=== PATIENT | male | born 1975 | race Caucasian/White ===

== ENCOUNTER 2024-10-10 18:39 | Observation (INO) | payer OTHER, SELFPAY ==
--- OUTSIDE RECORDS SUMMARY | 2024-03-26 10:00 | XMS_ITS ---
Author Organization [facility] Address [address] [facility] [address] [place] [address] Care Team Providers Care Decorating Equipment Setter Name Role Phone Kandis Hinton Jimmy [phone] REASON FOR VISIT WALK-OFF Social History Sex Assigned At : Social History Observation Description Sex Assigned At Male Encounters Encounter Location Date Provider Diagnosis [facility] [address] [facility] [address] [place] [address] 03/26/2024 Kandis Hinton Plan Of Treatment No Information Progress Notes * Larry PHAM JR CDOB:[birth year] (48 yo M)Acc No.[id number]:03/26/2024 Patient: Domonique Larry HARRIS JR Provider: Jovita Hinton NP :1975 A ge:48 Y S ex:Male Date:03/26/2024 Address:[address] [id number] Subjective: * Chief Complaints: * 1 . WALK-OFF. * Medical History: Objective: * Vitals: Assessment: Plan: * Treatment: * Billing Information: * Visit Code: * Procedure Codes: * Electronic signature of Sofia Hinton APRN on 10/10/2024 at 06:50 PM EDT Sign off status: Pending * Provider: Jovita Hinton NP Date: 05/27/2023 Generated for Printi ng/Faxing/eTransmitting on: 0 10/10/2024 06:50 PM EDT
[2024-10-10] VITALS (11 sets, daily range): BP systolic 109–162; BP diastolic 62–103; PULSE 65–101; RESP 16–30; TEMP 36.9; O2SAT 94–100; BMI 34.2; BMI 41.8
--- NOTE | 2024-10-10 18:40 | XR_ITS ---
PROCEDURE INFORMATION: Exam: XR Chest Exam date and time: 10/10/2024 6:58 PM Age: 48 years old Clinical indication: Other: AMS TECHNIQUE: Imaging protocol: Radiologic exam of the chest. Views: 1 view. COMPARISON: No relevant prior studies available. FINDINGS: Lungs: Unremarkable. No consolidation. Pleural spaces: Unremarkable. No pleural effusion. No pneumothorax. Heart/Mediastinum: Unremarkable. No cardiomegaly. Bones/joints: Unremarkable. IMPRESSION: No acute findings.
--- NOTE | 2024-10-10 18:44 | ED_ITS ---
Discharge Plan Disposition Patient Disposition: Admitted Clinical Impressions Clinical Impression: JHONNY (acute kidney injury) Rhabdomyolysis Qualifiers: Rhabdomyolysis type: non-traumatic Qualified Code(s): M62.82 - Rhabdomyolysis Discharge ED Provider: Rosana Anthony General Adult HPI <Jade Chapman APRN - Last Filed: 10/10/24 20:21> General Chief complaint: Altered Mental Status Stated complaint: Heat Stroke Time Seen by Provider: 10/10/24 18:40 History of Present Illness HPI narrative: patient is a 48-year-old male PMHx who presents to the ED via EMS for possible heatstroke. EMS reports that they were [place] after patient had been hunting and fishing with his friend for hours, he had multiple syncopal episodes reportedly before EMS arrived. When EMS arrived on scene, patient continued to have syncopal episodes and was altered. They state it took them approximately 1 hour to extract [place] from the [place] and bring him to the ED. Related Data Allergies Allergy/AdvReac Type Severity Reaction Status Date / Time No Known Allergies Allergy Verified 10/10/24 19:01 [facility] <Jade Chapman APRN - Last Filed: 10/10/24 20:21> [facility] Disclaimer: The information contained in this section may have been updated after the patient was seen, as this information can be updated by other users. Social History (Updated 10/10/24 @ 20:21 by Jade Chapman APRN) Smoking Status: Current every day smoker alcohol intake: current current occupational status: unemployed Travel in the last 8 weeks?: None Have you lived/traveled outside US in past 30 days?: No Contact w/someone who lives/traveled outside US past 30 days?: No Exposure to someone with infectious disease in past 14 days?: No Do you have a fever (greater than 100.4 F or 38 C)?: No Have you tested positive for COVID-19?: No Exposed to someone with COVID-19 in past 14 days?: No Do you have a sore throat?: No Do you have a cough?: No Do you have any weakness?: No Do you have any diarrhea?: No Are you experiencing any unusual bleeding?: No Do you have any muscle aches/pain?: No Do you have any abdominal pain?: No Are you experiencing loss of taste or smell?: No <Jade Chapman APRN - Last Filed: 10/10/24 20:21> ROS Obtained: Yes Systems reviewed as appropriate & no additional complaints except as documented Physical Exam <Jade Chapman APRN - Last Filed: 10/10/24 20:21> General General appearance: alert and in no apparent distress Head Head exam: atraumatic Eye Eye exam: Present PERRL and EOMI ENT ENT exam: Present normal exam Neck Neck exam: Present full ROM Chest Chest inspection: Present normal inspection Respiratory Respiratory exam: Present normal lung sounds bilaterally and respiratory distress Cardiovascular Cardiovascular exam: Present regular rate Abdominal Exam Abdominal exam: Present soft; Absent tenderness Extremities Exam Extremities exam: Present other (feet are dirty / covered in mud and wheat grass ) Back Exam Back exam: Present normal inspection and full ROM; Absent tenderness Neurological Exam Neurological exam: Present alert and oriented X3 Skin Skin exam: Present warm and dry Medical Decision Making <Jade Chapman APRN - Last Filed: 10/10/24 20:21> Medical Records Screening: Per USPSTF and CDC recommendations, given the prevalence of disease in our region, it is our hospital?s policy to screen for HIV and viral Hepatitis for all patients aged 18 and over and those with ongoing risk factors. Foreign Inquiry Pt receiving controlled substance: No Vital Signs: 10/10/24 18:47 10/10/24 18:57 10/10/24 19:29 Temperature 98.5 F 98.5 F Temperature Source Oral Oral Pulse Rate 101 H 97 H Pulse Rate [Right] 101 H Respiratory Rate 30 H 30 H 18 Blood Pressure 162/102 H 143/103 H Blood Pressure [Right Arm] 162/102 H Blood Pressure Mean [Right Arm] 122 Blood Pressure Source Automatic Cuff Blood Pressure Source [Right Arm] Automatic Cuff Blood Pressure Position Supine Blood Pressure Position [Right Arm] Supine 02 Sat by Pulse Oximetry 98 98 97 Oxygen Delivery Method Room Air Room Air Room Air Lab Data Lab Results 10/10/24 18:44: WBC 15.0 H, RBC 4.91, Hgb 14.4, Hct 41.2 L, MCV 83.9, MCH 29.3, MCHC 35.0, RDW 11.9, Plt Count 214, MPV 11.7 H, Neut % (Auto) 67.3, Lymph % (Auto) 21.6, [place] % (Auto) 9.6 H, Eos % (Auto) 0.4, Baso % (Auto) 0.6, Neut # (Auto) 10.1 H, Lymph # (Auto) 3.2, [place] # (Auto) 1.4 H, Eos # (Auto) 0.1, Baso # (Auto) 0.1, PT 12.2, INR 1.11 H, Sodium 130 L, Potassium 3.5, Chloride 91 L, Carbon Dioxide 27, Anion Gap 15.5 H, BUN 47 H, Creatinine 4.10 H, Estimated Creat Clear 31, Estimated GFR 16 L*, Est GFR ( Amer) 19 L*, Glucose 451 H*, Calcium 10.9 H, Total Bilirubin 1.3, AST 59, ALT 41, Alkaline Phosphatase 80, Total Creatine Kinase 1183 H*, Troponin I 0.04 H, Total Protein 7.8, Albumin 4.5, Globulin 3.3 H, Albumin/Globulin Ratio 1.4, Salicylates < 1.0 L, A cetaminophen < 10 L, Plasma/Serum Alcohol < 10 10/10/24 18:46: VBG pH 7.38, VBG pCO2 37.3, VBG pO2 57.3 H, VBG HCO3 21.7 L, VBG Total CO2 22.9 L, VBG O2 Saturation 90.5 H, VBG Base Excess -3.4 L, VBG Lactic Acid 2.1 H 10/10/24 18:44 10/10/24 18:44 Orders (Tests/Meds): ED MEDICATIONS Generic Name Dose Route Start Last Admin Trade Name Freq PRN Reason Stop Dose Admin Acetaminophen 650 mg 10/10/24 20:22 Acetaminophen 325mg Tab PO 11/09/24 20:21 Q4HP PRN Fever or Mild Pain (1-3) Sodium Chloride 1,000 mls @ 250 mls/hr 10/10/24 20:15 Sod Chlor 0.9% 1000ml Bag IV 11/09/24 20:14 .Q4H JENY Insulin Human Lispro 0 unit 10/10/24 21:00 Humalog 100 Units/Ml 10ml Vial (Ssi) SUBCUT 11/09/24 20:59 ACHS JENY Protocol Discontinued Medications Generic Name Dose Route Start Last Admin Trade Name Freq PRN Reason Stop Dose Admin Sodium Chloride 1,000 mls @ 999 mls/hr 10/10/24 18:40 10/10/24 19:20 Sod Chlor 0.9% 1000ml Bag IV 10/10/24 19:40 999 mls/hr .Q1H1M ONE Administration Insulin Human Lispro 10 unit 10/10/24 19:14 10/10/24 19:20 Humalog 100 Units/Ml 10ml Vial (Ssi) SUBCUT 10/10/24 19:15 10 unit ONCE ONE Administration ORDERS Category Date Time Status CXR --portable [XR chest portable] Stat Exams 10/10/24 18:40 Completed Acetaminophen Stat Lab 10/10/24 18:44 Completed Blood alcohol [Ethyl Alcohol] Stat Lab 10/10/24 18:44 Completed CBC w/Auto Diff [Complete Blood Count Auto Diff] Stat Lab 10/10/24 18:44 Completed CK [Creatine Kinase] Stat Lab 10/10/24 18:44 Completed CMP [Comprehensive Metabolic Panel] Stat Lab 10/10/24 18:44 Completed PT/INR [Prothrombin Time INR] Stat Lab 10/10/24 18:44 Completed Salicylate Stat Lab 10/10/24 18:44 Completed Trop I [Troponin I] Stat Lab 10/10/24 18:44 Completed Troponin I Q3H Lab 10/10/24 21:45 Ordered Troponin I Q3H Lab 10/11/24 00:45 Ordered UDS [Drug Screen,Urine] Stat Lab 10/10/24 18:40 Ordered VBG [Venous Blood Gas] Stat RT 10/10/24 18:46 Completed Medical Decision Narrative: In summary, patient is a 48-year-old male PMHx who presents to the ED via EMS for possible heatstroke. EMS reports that [place] were [place] patient had been hunting and fishing with his friend for hours, he had multiple syncopal episodes reportedly before EMS arrived. When EMS arrived on scene, patient continued to have syncopal episodes and was altered. They state it took them approximately 1 hour to extract [place] from the [place] and bring him to the ED. Unsure if patient fell during his syncopal episodes. They were originally going to fly the patient however patient refused flight. Upon arrival to the ED, patient is alert and oriented. He is hemodynamically stable. He states that he has diabetes, uses insulin. He states that he does use alcohol and drugs. He states that he does remember being out in [place] friends and passing out multiple times. He states he does remember being extracted from the [place]. Pt refusing to get off his cell phone during exam, refusing c-collar. Differential diagnosis include ICH, mass, intoxication, electrolyte abnormality, heatstroke, heat exhaustion, among others. Discussed with patient that we will proceed with labs, CT scans and IV fluids. Patient is agreeable to plan of care at this time. Once patient was in CT room, attending called to CT room, pt refused CT scans. Attending spoke to patient and advised him of concern of bleed, pt is A&Ox4, refuses CT scans. Verbalized understanding to attending of risk CBC remarkable for mild leukocytosis, WBC 15, stable H&H. Lactic acid 2.1. Sodium 130, anion gap 15.5, BUN 47, creatinine 4.10, GFR 16. Glucose 451. CK 1,183. Troponin < 0.04. Alcohol < 10. Acetaminophen < 10. Salicylate < 1.0. Patient is receiving his second liter of IV fluids in the ED. Patient given 10 units of subcutaneous insulin. I discussed with patient his kidney function and CK result, discussed with him that he will need to be admitted to the hospital. Initially, patient wanted to refuse admission. His brother is at bedside and convinced him to stay for admission. I contacted hospital medicine who admitted patient to their services. <Rosana Anthony, DO - Last Filed: 10/10/24 20:36> Vital Signs: 10/10/24 18:47 10/10/24 18:57 10/10/24 19:29 Temperature 98.5 F 98.5 F Temperature Source Oral Oral Pulse Rate 101 H 97 H Pulse Rate [Right] 101 H Respiratory Rate 30 H 30 H 18 Blood Pressure 162/102 H 143/103 H Blood Pressure [Right Arm] 162/102 H Blood Pressure Mean [Right Arm] 122 Blood Pressure Source Automatic Cuff Blood Pressure Source [Right Arm] Automatic Cuff Blood Pressure Position Supine Blood Pressure Position [Right Arm] Supine 02 Sat by Pulse Oximetry 98 98 97 Oxygen Delivery Method Room Air Room Air Room Air Lab Data Lab Results 10/10/24 18:44: WBC 15.0 H, RBC 4.91, Hgb 14.4, Hct 41.2 L, MCV 83.9, MCH 29.3, MCHC 35.0, RDW 11.9, Plt Count 214, MPV 11.7 H, Neut % (Auto) 67.3, Lymph % (Auto) 21.6, [place] % (Auto) 9.6 H, Eos % (Auto) 0.4, Baso % (Auto) 0.6, Neut # (Auto) 10.1 H, Lymph # (Auto) 3.2, [place] # (Auto) 1.4 H, Eos # (Auto) 0.1, Baso # (Auto) 0.1, PT 12.2, INR 1.11 H, Sodium 130 L, Potassium 3.5, Chloride 91 L, Carbon Dioxide 27, Anion Gap 15.5 H, BUN 47 H, Creatinine 4.10 H, Estimated Creat Clear 31, Estimated GFR 16 L*, Est GFR ( Amer) 19 L*, Glucose 451 H*, Calcium 10.9 H, Total Bilirubin 1.3, AST 59, ALT 41, Alkaline Phosphatase 80, Total Creatine Kinase 1183 H*, Troponin I 0.04 H, Total Protein 7.8, Albumin 4.5, Globulin 3.3 H, Albumin/Globulin Ratio 1.4, Salicylates < 1.0 L, A cetaminophen < 10 L, Plasma/Serum Alcohol < 10 10/10/24 18:46: VBG pH 7.38, VBG pCO2 37.3, VBG pO2 57.3 H, VBG HCO3 21.7 L, VBG Total CO2 22.9 L, VBG O2 Saturation 90.5 H, VBG Base Excess -3.4 L, VBG Lactic Acid 2.1 H Orders (Tests/Meds): ED MEDICATIONS Generic Name Dose Route Start Last Admin Trade Name Freq PRN Reason Stop Dose Admin Acetaminophen 650 mg 10/10/24 20:22 Acetaminophen 325mg Tab PO 11/09/24 20:21 Q4HP PRN Fever or Mild Pain (1-3) Sodium Chloride 1,000 mls @ 250 mls/hr 10/10/24 20:15 Sod Chlor 0.9% 1000ml Bag IV 11/09/24 20:14 .Q4H JENY Insulin Human Lispro 0 unit 10/10/24 21:00 Humalog 100 Units/Ml 10ml Vial (Ssi) SUBCUT 11/09/24 20:59 ACHS JENY Protocol Discontinued Medications Generic Name Dose Route Start Last Admin Trade Name Freq PRN Reason Stop Dose Admin Sodium Chloride 1,000 mls @ 999 mls/hr 10/10/24 18:40 10/10/24 19:20 Sod Chlor 0.9% 1000ml Bag IV 10/10/24 19:40 999 mls/hr .Q1H1M ONE Administration Insulin Human Lispro 10 unit 10/10/24 19:14 10/10/24 19:20 Humalog 100 Units/Ml 10ml Vial (Ssi) SUBCUT 10/10/24 19:15 10 unit ONCE ONE Administration ORDERS Category Date Time Status CXR --portable [XR chest portable] Stat Exams 10/10/24 18:40 Completed Acetaminophen Stat Lab 10/10/24 18:44 Completed Blood alcohol [Ethyl Alcohol] Stat Lab 10/10/24 18:44 Completed CBC w/Auto Diff [Complete Blood Count Auto Diff] Stat Lab 10/10/24 18:44 Completed CK [Creatine Kinase] Stat Lab 10/10/24 18:44 Completed CMP [Comprehensive Metabolic Panel] Stat Lab 10/10/24 18:44 Completed PT/INR [Prothrombin Time INR] Stat Lab 10/10/24 18:44 Completed Salicylate Stat Lab 10/10/24 18:44 Completed Trop I [Troponin I] Stat Lab 10/10/24 18:44 Completed Troponin I Q3H Lab 10/10/24 21:45 Ordered Troponin I Q3H Lab 10/11/24 00:45 Ordered UDS [Drug Screen,Urine] Stat Lab 10/10/24 18:40 Ordered VBG [Venous Blood Gas] Stat RT 10/10/24 18:46 Completed ECG Data Tracing #1: I reviewed this ECG and interpreted as documented below: Normal sinus rhythm with ventricular rate of [address] changes concerning for ischemia. Normal intervals ECG initial impression date: 10/10/24 ECG initial impression time: 18:45 Medical Decision Narrative: In summary, patient is a 48-year-old male PMHx who presents to the ED via EMS for possible heatstroke. EMS reports that they were [place] after patient had been hunting and fishing with his friend for hours, he had multiple syncopal episodes reportedly before EMS arrived. When EMS arrived on scene, patient continued to have syncopal episodes and was altered. They state it took them approximately 1 hour to extract [place] the [place] and bring him to the ED. Unsure if patient fell during his syncopal episodes. They were originally going to fly the patient however patient refused flight. Upon arrival to the ED, patient is alert and oriented. He is hemodynamically stable. He states that he has diabetes, uses insulin. He states that he does use alcohol and drugs. He states that he does remember [place] out [place] and passing out multiple times. He states he does remember being [place] from the [place]. Pt refusing to get off his cell phone during exam, refusing c-collar. Differential diagnosis include ICH, mass, intoxication, electrolyte abnormality, heatstroke, heat exhaustion, among others. Discussed with patient that we will proceed with labs, CT scans and IV fluids. Patient is agreeable to plan of care at this time. Once patient was in CT room, attending called to CT room, pt refused CT scans. Attending spoke to patient and advised him of concern of bleed, pt is A&Ox4, refuses CT scans. Verbalized understanding to attending of risk CBC remarkable for mild leukocytosis, WBC 15, stable H&H. Lactic acid 2.1. Sodium 130, anion gap 15.5, BUN 47, creatinine 4.10, GFR 16. Glucose 451. CK 1,183. Troponin < 0.04. Alcohol < 10. Acetaminophen < 10. Salicylate < 1.0. Patient is receiving his second liter of IV fluids in the ED. Patient given 10 units of subcutaneous insulin. I discussed with patient his kidney function and CK result, discussed with him that he will need to be admitted to the hospital. Initially, patient wanted to refuse admission. His brother is at bedside and convinced him to stay for admission. I contacted hospital medicine who admitted patient to their services. DO Raj: I was consulted by the ROBBY, and we discussed the complexity of the problems being addressed. I approved the treatment and management plan for this patient's care in the emergency department, thus performing a substantive portion of the medical decision making. Patient arrives critically ill with altered mental status, heat exposure. Broad workup was obtained to evaluate for heatstroke and other causes of altered mental status. Labs are concerning for acute rhabdomyolysis and JHONNY. Patient was treated with IV fluid resuscitation here. He also has hyperglycemia, for which insulin was ordered. Patient was taken to CT scan for CT scan of the head. I presented to CT, as the patient was refusing. We had a very long discussion about why we wanted to obtain CT given his multiple syncopal episodes and altered mental status upon arrival. Advised that I wanted to rule out stroke or head bleed. Patient was alert and oriented x 4 and was able to repeat back to me why I wanted to obtain a CT scan, but he states that he is not interested and feels fine now. He states that he has not had a stroke, he just got too hot. He notes that he is afraid of CT scanners and does not consent to CT. We had a long question about this, and patient still adamantly refused. Given that he is alert and oriented and demonstrates decision-making capacity, I cannot force him to obtain CT scan against his will. For heat exposure, rhabdomyolysis, and multiple syncopal episodes as well as JHONNY, it is felt he would benefit from admission. He was admitted after interactive discussion with the hospitalist. Rosana Anthony DO Critical Care <Jade Chapman APRN - Last Filed: 10/10/24 20:21> Critical Care Time Critical Care Time: No <Rosana Anthony DO - Last Filed: 10/10/24 20:36> Critical Care Time Critical Care Time: Yes Attestation: On 10/10/24, the high probability of a clinically significant, sudden or life threatening deterioration of the following system(s) required my full and direct attention, intervention and personal management. The time I documented below is in addition to time spent performing reported procedures but includes the following listed in this critical care notation. Total Time Total Critical Care Time: 35
--- NOTE | 2024-10-10 18:45 | ECG_ITS ---
APPROVED REPORT Exam: Resting ECG HR:98 bpm ECG Measurements Heart Rate 98 AXES OK 147 P 49 QRSd 128 QRS 25 QT 363 T 5 QTc 418 Conclusion SINUS RHYTHM ABNORMAL ECG No STEMI Electronically signed by : COLIN WISEMAN, 10/11/2024 21:19:12
--- NOTE | 2024-10-10 18:45 | PC.NURSE ---
Patients FSBS is 402.
--- NOTE | 2024-10-10 18:47 | PC.NURSE ---
2 ticks from patient (right neck at valero line, and center chest). Placed into specimen cup.
--- OUTSIDE RECORDS SUMMARY | 2024-10-10 18:50 | XMS_ITS | Encounter Summary ---
Author Organization [place] [address] Care Team Providers Care Performance Test Engineer Name Role Phone Alessio Gillis DO Primary Care Provider [phone] Encounter Details Date Type Department Care Team (Late st Contact Info) Description 10/09/2024 Orders Only [facility] [address] [place] [id number] Johnny Guerin MD [address] [place] [address] Chronic midline low back pain without sciatica; Chronic pain of right lower extremity Social History Tobacco Use Types Packs/Day Years Used Date Smoking Tobacco: Every Day Cigarettes 2 38.5 Started: 04/21/1986 Smokeless Tobacco: Never Comments:Pt reports he has b een vaping & has had 1 cigarette this week so far-05/03/19-KR Alcohol Use Standard Drinks/Week Comments Not Currently 0 (1 standard drink = 0.6 oz pure alcohol) few days ago, a can of 211 beer Overall Financial Resource Strain (CARDIA) [place] r Date Recorded Difficulty of Paying Living Expenses Not very [address] 03/25/2019 PHQ-2 Answer Date Recorded PHQ-2 Total Score 0 05/17/2024 Hunger Vital Sign Answer Date Recorded Worried About Running Out of Food in the Last Ye ar Never true 03/25/2019 Ran Out of Food in the Last Year Never true 03/25/2019 PRAPARE - Transportation Answer Date Re corded Lack of Transportation (Medical) Yes 03/25/2019 Lack of Transportation (Non-Medical) Yes 03/25/2019 Sex and Gender Information Value Date Recorded Sex Assigned at Not on file Legal Sex Male 7:56 PM EDT Gender Identity Not on file Sexual Orientation Not on file documented as of this encounter Functional Status * Is the person deaf or does he/she have serious difficulty hearing? Answer Date of Assessment Author No 05/17/2024 11:20 AM Cornelia Pandya MA * Is the person blind or does he/she have serious difficulty seeing even when wearing glasses? Answer Date of Assessment Author No 05/17/2024 11:20 AM Cornelia Pandya MA * Does this person have serious difficulty walking or climbing stairs? Answer Date of Assessment Author No 05/17/2024 11:20 AM Cornelia Pandya MA * Does this person have difficulty dressing or bathing? Answer Date of Assessment Author No 05/17/2024 11:20 AM Cornelia Pandya MA * Because of a physical, mental or emotional condition, does this person have difficulty doing errands alone such as visiting a doctor's office or shopping? Answer Date of Assessment Author No 05/17/2024 11:20 AM Cornelia Pandya MA documented as of this encounter Mental Status * Because of a physical, mental or emotional condition, does this person have serious difficulty concentrating, remembering or making decisions? Answer Entry Date Author No 05/17/2024 11:20 AM Cornelia Pandya MA documented in this encounter Ordered Prescriptions Prescription Sig Dispense Quantity Refills Last Filled Start Date End Date gabapentin (NEURONTIN) 600 mg Oral TabletIndications:C hronic midline low back pain without sciatica,Chronic pain of right lower extremity Take 1 Tablet by mouth 3 times daily. 90 Tablet 1 10/09/2024 documented in this encounter Plan of Treatment Not on file documented as of this encounter Goals Goal Patient Goal Type Associated Problems Recent Progress Patient-Stated? Author Blood Pressure < 140/90 Blood Pressure 120/76(2024 10:07 AM EDT) Gladys Barnes CCMA BMI (Calculated) < 30 General 47.2(07/21/19 25 10:07 AM EDT) Gladys Barnes CCMA Maintain a healthy diet, exercise regularly and maintain an ideal body weight General Gladys Barnes CCMA Stay Tobacco Free Lifestyle Gladys Barnes CCMA HEMOGLOBIN A1C < 7.0 Result Component 8.4( 5 12:41 PM EST) Gladys Barnes CCMA documented as of this encounter Visit Diagnoses Diagnosis Chronic midline low back pain without sciatica Chronic pain of right lower extremity documented in this encounter Care Teams Performance Test Engineer Relationship Specialty Start Date End Date Alessio Gillis DO [address] [place] [address] PCP - General Family Medicine 07/14/23 documented as of this encounter
--- OUTSIDE RECORDS SUMMARY | 2024-10-10 18:50 | XMS_ITS ---
Author Organization [facility] are Address [address] [place] [phone] Phone Care Team Providers Care Product Marketing Intern Name Role Phone Nelarodrigo MICHELLEN Felecia Primary Care Physician [phone] [ ] Conditions or Problems No information available. Medications No information available. Medications Administered No information available. Allergies, Adverse Reactions, Alerts No information available. Results No information available. Plan of Care No information available. Procedures No information available. Vital Signs No information available. Immunizations No information available. Advance Directives No information available.
--- OUTSIDE RECORDS SUMMARY | 2024-10-10 18:51 | XMS_ITS | Encounter Summary ---
Author Organization [facility] [place] [address] Care Team Providers Care Mechanical Engineering Teacher Name Role Phone Alessio Gillis DO Primary Care Provider [phone] Reason for Visit * Reason Onset Date Comments Medication Refill 09/09/2024 Encounter Details Date Type Department Care Team (Late st Contact Info) Description 09/09/2024 Refill [facility] [address] [place] [phone] Alessio Gillis DO [address] [place] [address] Medication Refill Social History Tobacco Use Types Packs/Day Years [...] End Date gabapentin (NEURONTIN) 600 mg Oral TabletIndications: Chronic midline low back pain without sciatica,Chronic pain of right lower extremity Take 1 Tablet by mouth 3 times daily. 90 Tablet 1 09/09/2024 10/07/2024 documented in this encounter Miscellaneous Notes * Telephone Encounter - Alessio Gillis DO - 09/09/2024 3:15 PM EDT Med refilled * Telephone Encounter - Gisell Henry MA - 09/09/2024 1:26 PM EDT [facility] 06/16/24 Last Refill 08/12/24 documented in this encounter Plan of Treatment Not on file documented as of this encounter Goals Goal Patient Goal Type Associated Problems Recent Progress Patient-Stated? Author Blood Pressure < 140/90 Blood Pressure 120/76(2024 10:07 AM EDT) Gladys Barnes CCMA BMI (Calculated) < 30 General 47.2(07/21/19 10:07 AM EDT) Gladys Barnes CCMA Maintain a healthy diet, exercise regularly and maintain an ideal body weight General Gladys Barnes CCMA Stay Tobacco Free Lifestyle Gladys Barnes CCMA HEMOGLOBIN A1C < 7.0 Result Component 8.4( 12:41 PM EST) Gladys Barnes CCMA documented as of this encounter Visit Diagnoses Diagnosis Chronic midline low back pain without sciatica Chronic pain of right lower extremity documented in this encounter Discontinued Medications Medication Sig Discontinue Reason Start Date End Da te gabapentin (NEURONTIN) 600 mg Oral TabletIndications:Chroni c midline low back pain without sciatica,Chronic pain of right lower extremity Take 1 Tablet by mouth 3 times daily. Reorder 08/12/2024 09/09/2024 documented as of this encounter Care Teams Mechanical Engineering Teacher Relationship Specialty Start Date End Date Alessio Gillis DO [address] [place] [address] PCP - General Family Medicine 07/14/23 documented as of this encounter
--- OUTSIDE RECORDS SUMMARY | 2024-10-10 18:51 | XMS_ITS | Encounter Summary ---
Author Organization [facility] [place] [address] Care Team Providers Care Residence Life Coordinator Name Role Phone Alessio Gillis DO Primary Care Provider [phone] Reason for Visit * Reason Onset Date Comments Medication Management 10/08/2024 gabapentin (NEURONTIN) Encounter Details Date Type Department Care Team (Late st Contact Info) Description 10/08/2024 Telephone [facility] [address] [place] [address] Alessio Gillis DO [address] [place] [address] Medication Management (gabapentin (NEURONTIN)) Social History Tobacco Use Types Packs/Day Years [...] Cornelia Pandya MA documented in this encounter Miscellaneous Notes * Telephone Encounter - Luh Traylor MA - 10/08/2024 1:35 PM EDT Rx refill was denied. Melissa spoke to [facility] and the pt. * Telephone Encounter - Ayesha Guevara 10/08/2024 1:07 PM EDT Select the most appropriate reason for this telephone message: Medication Management/Problem Who is calling? [facility] What medication(s) do you have concerns about: Disp Refills Start End gabapentin (NEURONTIN) 600 mg Oral Tablet 90 Tablet 1 10/07/2024 -- Sig - Route: Take 1 Tablet by mouth 3 times daily. - Oral Sent to pharmacy as: gabapentin 600 mg tablet (NEURONTIN) E-Prescribing Status: Receipt confirmed by pharmacy (10/07/2024 8:59 AM EDT) Prescribing provider: Elis What are your concerns/request: pt is wanting this med early pharmacy is needing an ok pt stating he is leaving town but he has been requesting it early frequently , July he got it on the got it 4 days early should have been the , August 2 days early and September 1 day early ,he should get it this month on the and is requesting it for today Desired outcome: Clarification of prescription Pharmacy: [facility] Return Method of Communication: Phone Call Additional Information: pt is waiting at the pharmacy documented in this encounter Plan of Treatment [...] and maintain an ideal body weight General lGadys Barnes CCMA Stay Tobacco Free Lifestyle Gladys Barnes CCMA HEMOGLOBIN A1C < 7.0 Result Component 8.4( 12:41 PM EST) Gladys Barnes CCMA documented as of this encounter Visit Diagnoses Not on filedocumented in this encounter Care Teams Residence Life Coordinator Relationship Specialty Start Date End Date Alessio Gillis DO [address] [place] [address] PCP - General Family Medicine 07/14/23 documented as of this encounter
--- OUTSIDE RECORDS SUMMARY | 2024-10-10 18:51 | XMS_ITS | Encounter Summary ---
Author Organization [facility] [place] [address] Care Team Providers Care Clerical Investigator Name Role Phone Alessio Gillis DO Primary Care Provider [phone] Encounter Details Date Type Department Care Team (Late st Contact Info) Description 10/09/2024 Refill [facility] [address] [place] [phone] Gladys Cox CCMA Social History Tobacco Use Types Packs/Day Years [...] encounter Miscellaneous Notes * Telephone Encounter - Gladys Cox CCMA - 10/09/2024 10:55 AM EDT Gabapentin refill went to the wrong [facility]. Dc'd med at [facility], pls resend to [facility]. documented in this encounter Plan of Treatment Not on file documented as of this encounter Goals Goal Patient Goal Type Associated Problems Recent Progress Patient-Stated? Author Blood Pressure < 140/90 Blood Pressure 120/76(2024 10:07 AM EDT) No Gladys Cox CCMA BMI (Calculated) < 30 General 47.2(07/21/19 [...] 1 Tablet by mouth 3 times daily. Availability 10/07/2024 10/09/2024 documented as of this encounter Care Teams Clerical Investigator Relationship Specialty Start Date End Date Alessio Gillis DO [address] [place] [address] PCP - General Family Medicine 07/14/23 documented as of this encounter
--- OUTSIDE RECORDS SUMMARY | 2024-10-10 18:51 | XMS_ITS | Patient Health Record ---
Author Organization [facility] Address [address] [facility] [address] [place] [address] Care Team Providers Care Razor Grinder Name Role Phone Felecia Smith Unavailable [phone] Kandis Hinton Unavailable [phone] Allergies No Known Allergies Reason For Referral No Information Medications Medication SIG (Take, Route, Frequency, Duration) Notes Start Date End Date Status Levemir 100 UNIT/ML 38 units Subcutaneou s in the morning for 30 days take 38 units in the am 03/20/2024 Active NovoLOG FlexPen 100 UNIT/ML as directed Subcutaneous per sliding scale for 28 days sliding scale Active Atenolol 25 MG 1 tablet Orally Once a day for 30 days Pt is at [facility] 03/24/2024 Active Meloxicam 15 MG 1 tablet Orally Once a day for 30 days Active amLODIPine Besylate 10 MG 1 tablet Orally Once a day for 30 days Active rOPINIRole HCl 0.5 MG 1 tablet 1 to 3 hours before bedtime Orally Once a day for 30 days 03/22/2024 Active SEROquel 50 MG 1 tablet at bedtime Orally Once a day for 30 days 03/22/2024 Active Cymbalta 60 MG 1 capsule Orally Onc e a day for 30 days 03/22/2024 Active Clindamycin HCl 300 MG 1 capsule Orally three times daily for 7 days 03/20/2024 Active Vraylar 1.5 MG 1 capsule Orally Onc e a day for 30 days 03/22/2024 Active Social History Tobacco Use: Social History Observation Description Date Details (start date - stop date) Current Smoker NA - NA Sex Assigned At : Social History Observation Description Sex Assigned At Male Tobacco Control (Standard) Question Answer Notes Tobacco use: Current smoker How often do you smoke cigarettes? Every day How many cigarettes a day do you smoke? 11-20 How soon after you wake up do you smoke your fir st cigarette? Within 5 minutes Are you interested in quitting? Not ready to trinity t Section Notes: Client states he had one lef tover OXY from surgery and he took it a couple days ago for pain in his leg. Client states he had one lef tover OXY from surgery and he took it a couple days ago for pain in his leg. 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) Active confirmed Problem 4684549 Primary insomnia (F51.01) Active confirmed Problem 871300492 custodial (current) use of insulin (Z79.4) Active confirmed Problem 44263239 Primary hypertension (I10) Active confirmed Problem 449901807 Neuropathy (G62.9) Active confirmed Problem 41286706 Mood disorder (F39) Active confirmed Vital Signs Heart Rate 97 /min 03/24/2024 Temperature 98.0 degrees Fahrenheit 03/24/2024 Respiratory Rate 18 /min 03/24/2024 Blood pressure diastolic 90 mm Hg 03/24/2024 Oximetry 95 % 03/24/2024 Height-cm 172.72 cm 03/24/2024 Weight-kg 126.1 kg 03/24/2024 Height 68 in 03/24/2024 Blood pressure systolic 180 mm Hg 03/24/2024 Weight 278 lbs 03/24/2024 BMI 42.27 kg/m2 03/24/2024 Encounters Encounter Location Date Provider Diagnosis [facility] [address] [address] 03/22/2024 Kandis Hinton Other stimulant dependence, uncomplicated F15.20 ; Marijuana use F12.90 ; High risk heterosexual behavior Z72.51 ; Mood disorder F39 ; Primary insomnia F51.01 ; 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 ; Primary hypertension I10 ; Type 2 diabetes mellitus without complications E11.9 ; custodial (current) use of insulin Z79.4 and Neuropathy G62.9 [facility] [address] [address] 03/24/2024 Felecia Smith Primary hypertension I10 Assessments Encounter Date Diagnosis (ICD Code) Assessment Notes Treatment Notes Treatment Clinical Notes Section Notes 03/22/2024 Other stimulant dependence, uncomplicated (ICD-10 - F15.20) 03/22/2024 Marijuana use (ICD-10 - F12.90) 03/24/2024 Primary hypertension (ICD-10 - I10) Pt given one time dose of Clonidine 0.1 mg while at [facility] to help lower bp today 03/22/2024 High risk heterosexual behavior (ICD-10 - Z72.51) 03/22/2024 Mood disorder (ICD-10 - F39) 03/22/2024 Primary insomnia (ICD-10 - F51.01) 03/22/2024 Night terrors (ICD-10 - F51.4) 03/22/2024 Primary hypertension (ICD-10 - I10) 03/22/2024 Type 2 diabetes mellitus without complications (ICD-10 - E11.9) 03/22/2024 adjunct faculty for medical terminology (current) use of insulin (ICD-10 - Z79.4) 03/22/2024 Neuropathy (ICD-10 - G62.9) 03/22/2024 Other 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 Reports did not abuse opioids taking medication for leg pain. History of diabetes on levemir 38 units in am, novolog sliding scale, interested in dexcom, will order. History of htn, amlodipine 10mg po everyday, place on daily bp checks. On mobic 15mg po everyday for pain. Reports mood disorder/swings , start vraylar 1.5mg po everyday, deneis si/hi/avh. Reprots night terrors, prazosin 1mg po hs, insomnia, start seroquel 50mg po hs. Reports restless leg requip .5mg po hs. Reports neuropathy lower extremity, restart cymbalta 60mg po everyday. On clindamycin for tooth abcess. Client is agreeable with treatment plan. 03/24/2024 Other House staff is going to help client call his PCP doctor office to see if the referral appt with nephrology has been made and see if we can help transport to the appointment. Pt agrees with this plan of care. Plan Of Treatment Pending Test Test Name Order Date Comprehensive Metabolic Panel (CMP) 05/2023 CBC with Diff 03/22/2024 Chlamydia and Gonorrhea Panel 03/22/2024 Hemoglobin A1C 03/22/2024 Hepatitis B Surface Antibody 03/22/2024 Hepatitis B Surface Antigen 03/22/2024 Hepatitis B Total Core Antibody 03/22/20 HCV AB with Reflex to Quantity and Refle x to Genotyping 03/22/2024 HIV Ag/Ab with Reflex to HIV Types 1 and 2 Antibody Differentiation 03/22/2024 Syphilis with Reflex to RPR Titer and TP -PA Confirmation 03/22/2024 T. vaginalis 03/22/2024 TSH 03/22/2024 Insurance Providers Payer Name Payer Address Payer Phone Subscriber Number Group Number Insured Name Patient Relationship to Insured Coverage Start Date Coverage End Date [employer] [facility] [employer] [facility] [address] [address] [place] [phone] [id number] Larry Pham Jr Self - patient is the insured Medical (General) History Medical History History ICD Code hypertension type II diabetes neuropathy Arthritis constipation hepatitis B-cured hepatitis C-cured Surgical History Surgery Date(Month/Year) right leg Hospitalization History Reason Date(Month/Year) skilled nursing for 90 days Dec 2023
--- OUTSIDE RECORDS SUMMARY | 2024-10-10 18:51 | XMS_ITS | Encounter Summary ---
Author Organization [facility] Address [address] [place] [address] Care Team Providers Care Human Relations Manager Name Role Phone Pcp, No Primary Care Provider [phone] Source Comments This information has been disclosed to you from confidential records protectfrom disclosure by state law. You shall make no further disclosure of thisinformation without the specific, written, and informed release of theindividual to whom it pertains, or as otherwise permitted by law. A generalauthorization for the release of medical or other information is not sufficientfor the purposes of the release of HIV test results or diagnoses. [id number] Health Encounter Details Date Type Department Care Team (Late st Contact Info) Description 11/24/2017 Orders Only [facility] Emergency Department [address] [place] [phone] Ayaka Tello Social History Tobacco Use Types Packs/Day Years Used Date Smoking Tobacco: Every Day Cigarettes 2 32 Smokeless Tobacco: Never Alcohol Use Standard Drinks/Week Comments Yes 0 (1 standard drink = 0.6 oz pur e alcohol) denies regular use Sex and Gender Information Value Date Recorded Sex Assigned at Not on file Legal Sex Male 6:48 PM EST Gender Identity Not on file Sexual Orientation Not on file documented as of this encounter Plan of Treatment Not on file documented as of this encounter Visit Diagnoses Not on filedocumented in this encounter Care Teams Human Relations Manager Relationship Specialty Start Date End Date Pcp, No No Address PCP - General Pediatrics 11/23/17 documented as of this encounter
--- OUTSIDE RECORDS SUMMARY | 2024-10-10 18:51 | XMS_ITS | Encounter Summary ---
Author Organization [facility] [address] Care Team Providers Care Saddle Mechanic Name Role Phone Alessio Gillis DO Primary Care Provider [phone] Reason for Visit * Reason Onset Date Comments Medication Refill 10/07/2024 Encounter Details Date Type Department Care Team (Late st Contact Info) Description 10/07/2024 Refill [facility] [address] [place] [phone] Alessio Gillis DO [address] [place] [address] Medication Refill Social History Tobacco Use Types [...] mouth 3 times daily. 90 Tablet 1 10/07/2024 10/09/2024 documented in this encounter Miscellaneous Notes * Telephone Encounter - Alessio Gillis DO - 10/07/2024 8:59 AM EDT Med refilled * Telephone Encounter - Gisell Henry MA - 10/07/2024 8:42 AM EDT Last refill 09/09/24 [facility] 06/16/24 documented in this encounter Plan of Treatment [...] as of this encounter Visit Diagnoses Diagnosis Acute bacterial sinusitis Acute sinusitis, unspecified Chronic midline low back pain without sciatica Chronic pain of right lower extremity documented in this encounter Discontinued Medications Medication Sig Discontinue Reason Start Date End Da te gabapentin (NEURONTIN) 600 mg Oral TabletIndications:Chroni c midline low back pain without sciatica,Chronic pain of right lower extremity Take 1 Tablet by mouth 3 times daily. Reorder 09/09/2024 10/07/2024 documented as of this encounter Care Teams Saddle Mechanic Relationship Specialty Start Date End Date Alessio Gillis DO [address] [place] [address] PCP - General Family Medicine 07/14/23 documented as of this encounter
--- OUTSIDE RECORDS SUMMARY | 2024-10-10 18:51 | XMS_ITS | Clinical Summary ---
Author Organization [facility] Address [address] [place] [address] Phone Care Team Providers Care Spring Tacker Name Role Phone Scooby Gillisy Primary Care Provider [phone] Allergies Active Allergy Reactions Criticality Noted Date Comments Ciprofloxacin Nausea And Vomiting Low 11/24/2019 Makes him nauseated and sometimes vomits Ketamine Other (See Comments) 11/24/2019 Hallucinated. Lisinopril Hives High 03/09/2019 [place] like throat was closing. Medications * This document contains information received from the source organization and may not represent a complete record from that organization. nalOXone (NARCAN) 4 mg/actuation Nasl [place], Non-Aerosol 11/07/19 22 Active guaiFENesin (MUCINEX) 600 mg Oral Tablet Extended Release 12hrIndications: Nasal congestion Take 1 Tablet by mouth 2 times daily. 30 Tablet 08/08/19 23 Active betamethasone dipropionate 0.05 % Top CreamIndications :Eczema, unspecified type Apply topically 2 times daily. 45 g 08/13/19 23 Active ONETOUCH VERIO TEST STRIPS Misc StripIndications :Type 2 diabetes mellitus with diabetic nephropathy, unspecified whether alf insulin use (HCC),Type 2 diabetes mellitus without complication, unspecified whether rn long term care insulin use (HCC) USE 1 STRIP TO CHECK GLUCOSE TWICE DAILY 100 Each 04/15/20 23 Active albuterol (PROVENTIL HFA;VENTOLIN HFA) 90 mcg/actuation Inhl HFA Aerosol InhalerIndicatio ns:History of asthma Inhale 2 Puffs into the lungs every 4 hours as needed for Wheezing. 1 Each 04/23/19 24 Active triamcinolone (NASACORT) 55 mcg Nasl Aerosol, SprayIndications :Nasal congestion 1 [place] by Nasal route 2 times daily. 10.5 mL 2 07/13/19 24 Active Lancets [facility] MiscIndications: Type 2 diabetes mellitus with diabetic nephropathy, unspecified whether rn long term care insulin use (HCC),Type 2 diabetes mellitus without complication, unspecified whether rn long term care insulin use (HCC) Check blood sugars twice daily. One touch Verio. Dx:E11.9 100 Each 2 11/11/19 24 Active Blood-Glucose Meter [facility] KitIndications:T ype 2 diabetes mellitus with diabetic nephropathy, unspecified whether alf insulin use (HCC),Type 2 diabetes mellitus without complication, unspecified whether rn long term care insulin use (HCC) Per insurance guidelines E11.9 1 Kit 03/16/20 24 Active rOPINIRole (REQUIP) 0.5 mg Oral Tablet 03/22/20 24 Active prazosin (MINIPRESS) 1 mg Oral Capsule 03/22/20 24 Active DULoxetine (CYMBALTA) 60 mg Oral Capsule, Delayed Release(E.C.) 03/22/20 24 Active hydrOXYzine (VISTARIL) 50 mg Oral Capsule 04/19/20 24 Active VRAYLAR 1.5 mg Oral Capsule 03/22/20 24 Active atenoloL (TENORMIN) 25 mg Oral Tablet 03/24/20 24 Active fluticasone propionate (FLONASE) 50 mcg/actuation Nasl [place], SuspensionIndica tions:Sinus congestion 2 Sprays by Nasal route daily as needed for Allergies. 16 g 05/06/19 25 Active SURE COMFORT INSULIN SYRINGE 1 mL 30 gauge x 09/03 [facility] Syringe 03/26/20 24 Active ONETOUCH DELICA PLUS LANCET 33 gauge [facility] USE 1 TO CHECK GLUCOSE TWICE DAILY 05/03/19 25 Active traZODone (DESYREL) 100 mg Oral TabletIndication s:Poor sleep Take 1 Tablet by mouth nightly. 30 Tablet 05/20/19 25 Active amLODIPine (NORVASC) 10 mg Oral TabletIndication s:Essential hypertension Take 1 Tablet by mouth daily. 30 Tablet 2 05/24/19 25 Active Blood Sugar [facility] StripIndications :Type 2 diabetes mellitus with diabetic nephropathy, unspecified whether rn long term care insulin use (HCC) 1 Strip by [facility].(Non-Drug; Combo Route) route 3 times daily. 100 Strip 11 06/02/19 25 Active cetirizine-psued oephedrine (ZYRTEC-D) 5-120 mg Oral Tablet Sustained Release 12 hrIndications:Na tania congestion Take 1 Tablet by mouth 2 times daily. 60 Tablet 2 06/02/19 25 Active fUROsemide (LASIX) 20 mg Oral TabletIndication s:Bilateral lower extremity edema Take 1 Tablet by mouth daily as needed. 30 Tablet 1 06/11/19 25 Active ibuprofen (ADVIL;MOTRIN) 800 mg Oral TabletIndication s:Chronic midline low back pain without sciatica,Chronic pain of right lower extremity Take 1 Tablet by mouth every 8 hours as needed for Pain. 90 Tablet 2 06/16/19 25 Active semaglutide 0.25 mg or 0.5 mg (2 mg/3 mL) SubQ Pen InjectorIndicati ons:Type 2 diabetes mellitus with diabetic nephropathy, unspecified whether rn long term care insulin use (HCC) Subcutaneous (Inject under the skin) 0.5 mg once a week. 9 mL 06/26/19 25 Active methylPREDNISolo ne (MEDROL DOSPACK) 4 mg Oral Tablets, Dose PackIndications: Acute bacterial sinusitis See package instructions 21 Tablet 07/21/19 25 Active Brompheniramine- Pseudoeph-DM 2-30-10 mg/5 mL Oral SyrupIndications :Acute bacterial sinusitis Take 10 mL by mouth every 4 hours as needed. 240 mL 07/21/19 25 Active insulin aspart U-100 (NOVOLOG FLEXPEN U-100 INSULIN) 100 unit/mL (3 mL) SubQ Insulin PenIndications:T ype 2 diabetes mellitus without complication, unspecified whether rn long term care insulin use (HCC) Sliding scale insulin up to 15 units with meals three times a day 12 mL 5 08/04/19 25 Active insulin detemir U-100 (LEVEMIR FLEXPEN) 100 unit/mL (3 mL) SubQ Insulin PenIndications:T ype 2 diabetes mellitus with diabetic nephropathy, unspecified whether alf insulin use (HCC) INJECT 38 UNITS SUBCUTANEOUSLY TWICE DAILY 30 mL 2 08/04/19 Active insulin glargine (LANTUS SOLOSTAR U-100 INSULIN) 100 unit/mL (3 mL) SubQ Insulin Pen Subcutaneous (Inject under the skin) 40 Units 2 times daily. 15 mL 5 08/04/19 Active Insulin [place], Disposable, (BD MILES 2ND GEN PEN NEEDLE) 32 gauge x /32 Misc Needle Injection insulin twice a day 100 Each 08/04/19 Active gabapentin (NEURONTIN) 600 mg Oral TabletIndication s:Chronic midline low back pain without sciatica,Chronic pain of right lower extremity Take 1 Tablet by mouth 3 times daily. 90 Tablet 1 10/10/19 Active Active Problems Patient Care Coordination No te Formatting of this note migh t be different from the original. Utilization audit completed by Faith Evans RN on 05/16/2022. Problem Noted Date Diagnosed Date Alcohol-induced mood disorder 04/14/2024 Alcohol-induced anxiety disorder 04/14/2024 Substance induced mood disorder 04/14/2024 Substance-induced sleep disorder 04/14/2024 Displaced fracture of latera l malleolus of right fibula, initial encounter for closed fracture 03/05/2022 Alcohol use disorder, severe, dependence 020 Severe benzodiazepine use disorder 03/16/2020 Intravenous drug abuse 03/15/2020 BMI 30.0-30.9,adult 03/15/2020 Smoker 11/24/2019 Uncontrolled type 2 diabetes mellitus with hyper glycemia 11/23/2019 MRSA bacteremia 03/26/2019 Opioid dependence, continuous 03/25/2019 Methamphetamine dependence 03/25/2019 Mood disorder 03/25/2019 Abnormal brain MRI 03/15/2019 Overview (03/15/2019): 03/18/19 IMPRESSION: Multiple areas of signal void on the gradient echo sequence with differential of multiple cavernous angiomas versus amyloid angiopathy. The subtle hyperdensity seen on the CT is regional to one of the larger areas in the LEFT frontal region and rather than subarachnoid hemorrhage may actually represent the cavernous angioma or area of amyloid angiopathy seen on the MRI. No other significant findings on the MRI. Paraspinal abscess 02/23/2019 Amphetamine abuse 02/15/2019 Hyponatremia 02/15/2019 Psychosis 11/24/2017 PTSD (post-traumatic stress disorder) 09/25/2011 Explosive personality disorder 09/25/2011 failed tox screen, no more controlleds 2 Overview (12/18/2011): No longer give gabapentin. See scan from [facility] 12/18/11 SVETLANA (generalized anxiety disorder) 05/28/2011 Sciatica 04/29/2011 Chronic low back pain without sciatica 1 Vitamin D deficiency 03/28/2011 B12 deficiency 03/28/2011 TMJ disease 03/05/2011 Constipation 02/18/2011 Disc prolapse 02/18/2011 Essential hypertension 02/06/2011 Hypercholesteremia 02/06/2011 Type 2 diabetes mellitus wit hout complication, without long-term current use of insulin 02/06/2011 Chronic back pain sees pain managment 02/06/2011 Assessment & Plan (06/16/2024 5:30 PM EST): Orders: ibuprofen (ADVIL;MOTRIN) 800 mg Oral Tablet; Take 1 Tablet by mouth every 8 hours as needed for Pain. Assessment & Plan (03/16/2024 3:00 PM EST): Orders: gabapentin (NEURONTIN) 600 mg Oral Tablet; Take 1 Tablet by mouth 3 times daily. Abscess of left forearm Acute septic pulmonary embolism without acute co r pulmonale Chronic hepatitis C without hepatic coma Epidural abscess Onychodystrophy Fissure in skin of foot Xerosis of skin Diabetic polyneuropathy asso ciated with type 2 diabetes mellitus Resolved Problems Problem Noted Date Diagnosed Date Resolved Date Homeless 03/16/2020 03/16/2024 Medication monitoring encounter 03/16/2020 04/14/2024 Homeless 03/15/2020 03/16/2024 Sepsis 02/15/2019 03/15/2019 Bilateral pneumonia 02/15/2019 03/15/20 19 Alcohol abuse 02/15/2019 04/14/2024 Insomnia 04/08/2011 04/14/2024 MRSA bacteremia 04/14/2024 IVDU (intravenous drug user) 04/14/2024 Encounters * This document contains information received from the source organization and may not represent a complete record from that organization. Date Type Department Care Team Description 10/09/2024 Orders Only [facility] [address] [place] [address] Johnny Guerin MD Chronic midline low back pain without sciatica; Chronic pain of right lower extremity 10/09/2024 Refill [facility] [address] [place] [address] Gladys Cox [facility] 10/08/2024 Telephone [facility] [address] [place] [address] Alessio Gillis, Medication Management (gabapentin (NEURONTIN)) 10/07/2024 Refill [facility] [address] [place] [address] Alessio Gillis, Medication Refill 09/09/2024 Refill [facility] [address] [place] [address] Alessio Gillis, Medication Refill 08/12/2024 Refill [facility] [address] [place] [address] Alessio Gillis, Medication Refill 08/03/2024 Refill [facility] [address] [place] [address] Alessio Gillis, Medication Refill 07/22/2024 Telephone [facility] [address] [place] [address] Alessio Gillis, Symptoms (Only Use If Pt Pushes Back On Scheduling A Visit) (cough) 07/20/2024 9:45 AM EDT Office Visit [facility] [address] [place] [address] Alessio Gillis DO Acute bacterial sinusitis (Primary Dx); Screening for colon cancer 07/16/2024 Refill [facility] [address] [place] [address] Alessio Gillis, Medication Refill from Last 3 Months Immunizations Immunization Administration Dates Next Due Hepatitis A, Adult 03/25/2018 Hepatitis B, Adult 04/01/2019,02/26/2019 Influenza Vaccine Quadrivalent PF 02/16/2019 Tetanus Toxoid, Adsorbed 11/02/2009 Surgical History Surgery Date Site/Laterality Comments HAND SURGERY 07/18/2017 Left Incision and drainage left antecubital abscess; Surgeon: Jeanine Munson MD; Location: [facility] MAIN OR; Service: General IR PICC INSERTION EQUAL OR > 5 YEARS 02/23/2019 IR PICC INSERTION EQUAL OR > 5 YEARS 02/23/2019 Ayleen Joseph PA-C [facility] IR IR PICC INSERTION EQUAL OR > 5 YEARS 03/25/2019 IR PICC INSERTION EQUAL OR > 5 YEARS 03/25/2019 April Slater PA-C [facility]AK IR HAND SURGERY 11/24/2019 Arm Lower/Left Incision and Drainage of Left Forearm Abscess; Surgeon: Chung Mike MD; Location: [facility] MA[facility] OR; Service: Orthopedics IR PICC INSERTION EQUAL OR > 5 YEARS 11/26/2019 IR PICC INSERTION EQUAL OR > 5 YEARS 11/26/2019 April Slater PA-C [facility] IR ANKLE FRACTURE SURGERY 03/08/2022 Foot/Ankle/Right OPEN REDUCTION INTERNAL FIXATION RIGHT LATERAL MALLEOLUS ; Surgeon: Farooq Gonzalez MD; Location: [facility]; Service: Orthopedics Medical devices from this surgery are in the Medical Devices section. Medical History Medical History Date Comments Diabetes mellitus (HCC) Hypertension pt states from p ain, no medication Anxiety Chronic back pain Chronic knee pain Sciatica 04/29/2011 Alcohol abuse 02/15/2019 Hepatitis Headache Depression Asthma COPD (chronic obstructive pu lmonary disease) (HCC) Seizures (HCC) pt reports, no m edication Family History Medical History Relation Name Comments Diabetes Father Rheum Arthritis Mother Anesth Problems Neg Hx Relation Name Status Comments Father Mother Social History Tobacco Use Types Packs/Day Years Used Date Smoking Tobacco: Every Day Cigarettes 2 38.5 Started: 04/21/1986 Smokeless Tobacco: Never Tobacco Cessation:Ready to Q uit: No; Counseling Given: Not Answered Comments:Pt reports he has been vaping & has had 1 cigarette this [...] on file Sexual Orientation Not on file Obstetrics History Last Filed Vital Signs Vital Sign Reading Time Taken Comments Blood Pressure 120/76 07/20/2024 10:07 AM EDT Pulse 87 05/20/2024 1:48 PM EST Temperature 36.6 C (97.9 F) 06/16/2024 3:23 PM EST Respiratory Rate 16 05/20/2024 1:48 PM EST Oxygen Saturation 99% 05/20/2024 1:48 PM EST Inhaled Oxygen Concentration - - Weight 140.6 kg (310 lb) 07/20/2024 10:07 AM EDT Height 172.7 cm (5' 8 ) 07/20/2024 10:07 AM EDT Body Mass Index 47.14 07/20/2024 10:07 AM EDT Plan of Treatment Health Maintenance Due Date Last Done Comments DTaP/TDaP/Td (1 - Tdap) 1992 Pneumococcal Vaccine 50+ (1 of 2 - PCV) 1992 Cologuard 2018 Colon Cancer Screening 2018 Colonoscopy 2018 FIT 2018 Sigmoidoscopy 2018 Virtual Colonography 2018 Hepatitis B Vaccine (3 of 3 - 19+ 3-dose series) 08/27/2019 04/01/2019, 02/26/2019 Low Dose Lung Cancer Screening 11/17/2023 04/01/2019, 02/14/2019 Zoster (1 of 2) 11/17/2023 COVID-19 Vaccine (3 - season) 2023 01/05/2021, 08/31/2020 Annual Wellness Exam 03/18/2024 03/18/2023 Diabetic Eye Exam 07/23/2024 07/23/2022, 12/19/2021 Hemoglobin A1c 10/28/2024 04/30/2024, 1109/2023, 03/18/2023, Additional history exists Lipids 11/10/2024 11/11/2023, 03/0 06/2021, 11/23/2017, Additional history exists Influenza Vaccine (Season Ended) 2024 02/16/2019 Kidney Health: uACR 03/16/2025 03/16/2024, Kidney Health: eGFR 04/30/2025 04/30/2024, 11/11/2023, 04/04/2023, Additional history exists Meningococcal B Vaccine Aged Out No l onger eligible based on patient's age to complete this topic Goals Goal Patient Goal Type Associated Problems Recent Progress Patient-Stated? Author Blood Pressure < 140/90 Blood Pressure 120/76(2024 10:07 AM EDT) Gladys Banres CCMA BMI (Calculated) < 30 General 47.2(07/21/19 10:07 AM EDT) Gladys Barnes CCMA Maintain a healthy diet, exercise regularly and maintain an ideal body weight General Gladys Barnes CCMA Stay Tobacco Free Lifestyle Gladys Barnes CCMA HEMOGLOBIN A1C < 7.0 Result Component 8.4( 12:41 PM EST) Gladys Barnes CCMA Medical Devices Implanted Type Area Geography Department Chair Device Identifier Shelf Expiration Date Model / Serial / Lot Plate Variax [id number] 3.5mm 5hl 2mm 1.3x16mm Ns Recon Polyax - [id number] Implanted:Qty: 1 on 03/08/2022 by Farooq Gonzalez MD at [facility] Right: Ankle ESPERANZA:ORTHOPEDI CS [id number] / / Screw 3.5x16mm Lck Variax Ft T10 Hex Drv Ti - [id number] Implanted:Qty: 2 on 03/08/2022 by Farooq Gonzalez MD at [facility] Right: Ankle ESPERANZA:ORTHOPEDI CS [id number] / / Screw 3.5x18mm Lck Variax Ft T10 Hex Drv Ti - [id number] Implanted:Qty: 1 on 03/08/2022 by Farooq Gonzalez MD at [facility] Right: Ankle ESPERANZA:ORTHOPEDI CS [id number] / / Screw 3.5x12mm Nlckg Variax Ft T10 Hex Drv Ti - [id number] Implanted:Qty: 2 on 03/08/2022 by Farooq Gonzalez MD at [facility] Right: Ankle ESPERANZA:ORTHOPEDI CS [id number] / / Screw 3.5x16mm Nlckg Variax Ft T10 Hex Drv Ti - [id number] Implanted:Qty: 1 on 03/08/2022 by Farooq Gonzalez MD at [facility] Right: Ankle ESPERANZA:ORTHOPEDI CS [id number] / / Procedures Procedure Name Priority Date/Time Associated Diagnosis Comments CREATININE Routine 04/30/2024 12:41 PM EST Alcohol use disorder, severe, dependence (HCC) HEMOGLOBIN A1C Routine 04/30/2024 12:41 PM EST Alcohol use disorder, severe, dependence (HCC) MICROALBUMIN/CREATI NINE RATIO URINE Routine 03/16/2024 2:40 PM EST Type 2 diabetes mellitus with diabetic nephropathy, unspecified whether alf insulin use (HCC) LIPID SCREEN Routine 11/11/2023 3:01 PM EDT Type 2 diabetes mellitus with diabetic nephropathy, unspecified whether alf insulin use (HCC) Type 2 diabetes mellitus without complication, unspecified whether rn long term care insulin use (HCC) HM DIABETES EYE EXAM Routine 07/23/2022 CT CHEST WO CONTRAST Routine 04/01/2019 7:59 PM EST from Last 3 Months or Most Recently Relevant to Health Maintenance Results * (ABNORMAL) HEMOGLOBIN A1C (04/30/2024 12:41 PM EST) Hgb A1C 8.4(H) 4.2 - 5.6 % 04/30/2024 8:50 PM EST [employer] [facility] Est. Avg Glucose 194 mg/dL 04/30/2024 8:50 PM EST [facility] Blood VENOUS BLOOD / Unknown Venipuncture / Unknown 04/30/2024 12:41 PM EST 04/30/2024 12:41 PM EST Narrative [facility] [employer] [facility] - 04/30/2024 8:50 PM EST REFERENCE RANGE: Normal: 4.0-5.6% Pre-diabetes: 5.7-6.4% Provisional diagnosis of diabetes: >6.4% Hgb F>10% and anything which shortens red cell survival, such as hemolytic anemia, or unstable hemoglobin variants such as HbSS, HbSC, or HbCC, will lower the HbA1c value associated with a given level of glycemic control. us Aarti Duque APRN CHEMISTRY ORDERABLES Final Result [facility] [employer] [facility] [address] [facility], [address] [place] [id number] [facility] [address] [place], [place] [id number] * CREATININE (04/30/2024 12:41 PM EST) Pathologist [facility] Creatinine 0.82 0.67 - 1.30 mg/dL 04/30/2024 8:50 PM EST [facility] [employer] [facility] eGFR (CKD-EPIcr 2020) 107 >=60 mL/min/1.7 3 m2 04/30/2024 8:50 PM EST [facility] Comment:Estimated GFR was ca lculated using the CKD-EPIcr (2020) equation refit without race. The equation is recommended by the National Kidney Foundation - [place] [employer] Nephrology Task Force. Blood VENOUS BLOOD / Unknown Venipuncture / Unknown 04/30/2024 12:41 PM EST 04/30/2024 12:41 PM EST Aarti Duque YARDER CHEMISTRY ORDERABLES Final Result [facility] [employer] [facility] [address] [facility] , [place] [address] [facility] [address] [place] [address] * (ABNORMAL) MICROALBUMIN/CREATININE RATIO URINE (03/16/2024 2:40 PM EST) Urine Microal[employer] 1,539.3 mg/L 03/16/2024 11:10 PM EST [facility], [facility] Urine Creatinine 103.0 mg/dL 03/16/2024 11:10 PM EST [employer] [facility], [facility] Ur Microalb/Creat 1,494(H) 0 - 30 mg/g 03/16/2024 11:10 PM EST [facility] Urine URINE SPECIMEN COLLECTION / Unknown 03/16/2024 2:40 PM EST 03/16/2024 2:40 PM EST Alessiosara CagleElis DO URINE ORDERABLES Final Result Performing Organization Address City/[facility] Co de Phone Number [facility] [employer] [facility] [address] [facility] , [place] [address] [facility] [address] [place] [address] * (ABNORMAL) LIPID SCREEN (11/11/2023 3:01 PM EDT) Cholesterol 186 <200 mg/dL 11/11/2023 8:13 PM EDT [facility], [facility] Comment: < 200 Desirable 200 - 239 Borderline High >= 240 High Triglyceride 322(H) <150 mg/dL 11/11/2023 8:13 PM EDT [employer] [facility] Comment: < 150 Normal 150 - 199 Borderline High 200 - 499 High >= 500 Very High HDL 45 >=40 mg/dL 11/11/2023 8:13 PM EDT [employer] [facility] Comment: > 60 Optimal 40 - 60 Acceptable < 40 Low LDL Calculated 88 <100 mg/dL 11/11/2023 8:13 PM EDT [employer] Comment: < 100 Optimal 100 - 129 Near or above optimal 130 - 159 Borderline High 160 - 189 High >= 190 Very High Non-HDL-C Calculated 141(H) <=129 mg/dL 11/11/2023 8:13 PM EDT [employer] Comment: <130 Desirable 130-159 Above Desirable 160-189 Borderline High 190-219 High >= 220 Very High Fasting Specimen? Yes None 024 8:13 PM EDT [facility] Blood VENOUS BLOOD / Unknown Venipuncture / Unknown 11/11/2023 3:01 PM EDT 11/11/2023 3:01 PM EDT [facility] Elis DO CHEMISTRY ORDERABLES Final Resu lt Performing Organization Address City/[facility]/ZIP Co de Phone Number [facility] [employer] [address] [facility] , [place] [address] [facility] [address] [place] [id number] * DIABETES EYE EXAM (07/23/2022) Left Diabetic Retinopathy Not Present Present/Not Present [facility] Right Diabetic Retinopathy Not Present Present/Not Present SE[facility] OFFICE [facility] Provider HEALTH MAINTENANCE Edited Re sult - Final Performing Organization Address City/[facility] Co de Phone Number SEP OFFICE * CT CHEST WO CONTRAST (04/01/2019 7:59 PM EST) Anatomical Region Laterality Modality Chest Computed Tomogra phy 04/01/2019 7:59 PM EST Impressions 04/01/2019 10:23 PM EST 1. Waxing and waning groundglass nodules throughout all lobes of both lungs. These nodules once again appear infectious. 2. The more solid nodule in the anterior aspect of the left upper lobe also could be infectious but given its size and lack of change, further evaluation is recommended and this case will be evaluated at the lung nodule management board with further follow-up recommendations forthcoming. 3. New moderate sized heterogeneous right pleural effusion. It is unclear if the heterogeneity is related to blood byproducts or if there is an underlying component of an empyema. Correlation with clinical symptoms is recommended. 4. Incidental findings as described Code Lung Management Narrative 04/01/2019 10:23 PM EST CLINICAL HISTORY: -Suggest HRCT, follow up for multiple pulmonary nodules. COMPARISON: 02/14/2019. TECHNIQUE: CT CHEST WO CONTRAST on 04/01/2019 7:59 PM. FINDINGS: There are multiple groundglass nodules throughout both lungs, some of which are new from the prior study while others are unchanged. Several nodules reported on the prior study have also resolved. A more solid nodule along the anterior aspect of the left interlobar fissure is unchanged measuring 1.7 x 1.3 cm. There is new pleural thickening along the lateral and posterior aspects of the right hemithorax. In addition, a mildly complex moderate sized right pleural effusion is noted. The tracheobronchial tree is patent. There is no pneumothorax. The heart size and pulmonary vascularity are normal and there is no pericardial effusion. A left PICC tip terminates in the most distal aspect of the left brachiocephalic vein. The aorta and pulmonary arteries are normal in caliber. There are mildly reactive mediastinal and hilar lymph nodes. The included thyroid gland and esophagus are normal and there is no hernia. The upper abdomen is unremarkable. There are degenerative changes in the osseous structures. Procedure Note Duong Avila MD - 04/01/2019 CLINICAL HISTORY: -Suggest HRCT, follow up for multiple pulmonarynodules. COMPARISON: 02/14/2019. TECHNIQUE: CT CHEST WO CONTRAST on 04/01/2019 7:59 PM. FINDINGS: There are multiple groundglass nodules throughout both lungs,some of which are new from the prior study while others are unchanged. Severalnodules reported on the prior study have also resolved. A more solid nodule alongthe anterior aspect of the left interlobar fissure is unchanged measuring 1.7x 1.3 cm. There is new pleural thickening along the lateral and posterioraspects of the right hemithorax. In addition, a mildly complex moderate sized rightpleural effusion is noted. The tracheobronchial tree is patent. There is no pneumothorax. The heartsize and pulmonary vascularity are normal and there is no pericardial effusion.A left PICC tip terminates in the most distal aspect of the leftbrachiocephalic vein. The aorta and pulmonary arteries are normal in caliber. There aremildly reactive mediastinal and hilar lymph nodes. The included thyroid gland and esophagus are normal and there is nohernia. The upper abdomen is unremarkable. There are degenerative changes in theosseous structures. IMPRESSION: 1. Waxing and waning groundglass nodules throughout all lobes of bothlungs. These nodules once again appear infectious. 2. The more solid nodule in the anterior aspect of the left upper lobealso could be infectious but given its size and lack of change, furtherevaluation is recommended and this case will be evaluated at the lung nodule managementboard with further follow-up recommendations forthcoming. 3. New moderate sized heterogeneous right pleural effusion. It is unclearif the heterogeneity is related to blood byproducts or if there is anunderlying component of an empyema. Correlation with clinical symptoms isrecommended. 4. Incidental findings as described Code Lung Management Danisha Garibay MD IMG CT ORDERABLES Final Result from Last 3 Months or Most Recently Relevant to Health Maintenance Insurance [facility] [address] [employer] [place] [address] [employer] [place] [place] [address] [address] * Guarantor: [employer] Account Type Relation to Patient Date of Phone Billing Address Corporate Other * Guarantor: CORPORATE,[facility] Account Type Relation to Patient Date of Phone Billing Address Corporate Other ATTN: MEDICAL DEPT [facility] [address] * Guarantor: CORPORATE,[facility] Account Type Relation to Patient Date of Phone Billing Address [facility] Corporate Other ATTN: MEDICAL DEPT [address] * Guarantor: CORPOR[employer],[facility] Account Type Relation to Patient Date of Phone Billing Address [facility] Corporate Other ATTN: MEDICAL DEPT [address] Advance Directives For more information, please contact: [phone] * Full Code (Latest Code Status on File) Date Activated Date Inactivated Comments 11/23/2019 9:17 PM 12/02/2019 8:42 PM * Full Code Date Activated Date Inactivated Comments 03/25/2019 6:58 PM 04/04/2019 5:59 PM * Full Code Date Activated Date Inactivated Comments 02/22/2019 9:55 PM 03/23/2019 10:02 PM * Full Code Date Activated Date Inactivated Comments 02/15/2019 11:23 PM 02/22/2019 9:50 PM Care Teams Spring Tacker Relationship Specialty Start Date End Date Alessio Gillis DO [facility] [place] [address] PCP - General Family Medicine 07/14/23
--- OUTSIDE RECORDS SUMMARY | 2024-10-10 18:51 | XMS_ITS | Encounter Summary ---
Author Organization [place] [address] Care Team Providers Care Contact And Service Clerks Supervisor Name Role Phone Alessio Gillis DO Primary Care Provider [phone] Reason for Visit * Reason Onset Date Comments Medication Refill 08/12/2024 Encounter Details Date Type Department Care Team (Late st Contact Info) Description 08/12/2024 Refill [facility] [address] [place] [phone] Alessio Gillis DO [address] [place] [address] Medication Refill Social History Tobacco Use Types [...] mouth 3 times daily. 90 Tablet 1 08/12/2024 09/09/2024 documented in this encounter Miscellaneous Notes * Telephone Encounter - Alessio Gillis DO - 08/12/2024 11:06 AM EDT Med refilled * Telephone Encounter - Kaur Larios RMA - 08/12/2024 9:19 AM EDT Alycia 06/16 documented in this encounter Plan of Treatment [...] Tablet by mouth 3 times daily. Reorder 07/16/2024 08/12/2024 documented as of this encounter Care Teams Contact And Service Clerks Supervisor Relationship Specialty Start Date End Date Alessio Gillis DO [address] [place] [address] PCP - General Family Medicine 07/14/23 documented as of this encounter
--- OUTSIDE RECORDS SUMMARY | 2024-10-10 18:51 | XMS_ITS | Clinical Summary ---
Author Organization [facility] Address [address] [place] [id number] Care Team Providers Care Grocery Bagger Name Role Phone Pcp, No Primary Care Provider [phone] Source Comments This information has been disclosed to you from confidential records protectedfrom disclosure by state law. You shall make no further disclosure of thisinformation without the specific, written, and informed release of theindividual to whom it pertains, or as otherwise permitted by law. A generalauthorization for the release of medical or other information is not sufficientfor the purposes of therelease of HIV test results or diagnoses. [id number] Allergies No known active allergies Medications cyclobenzaprine (FLEXERIL) 10 MG tablet Take 10 mg by mouth 3 times a day as needed for Muscle spasms. Active Active Problems Problem Noted Date Diagnosed Date Psychosis 11/24/2017 Amphetamine intoxication, uncomplicated 11/24/19 18 Social History Tobacco Use Types Packs/Day Years Used Date Smoking Tobacco: Every Day Cigarettes 2 32 Smokeless Tobacco: Never Tobacco Cessation:Ready to Q uit: No; Counseling Given: No Alcohol Use Standard Drinks/Week Comments Yes 0 (1 standard drink = 0.6 oz pur e alcohol) denies regular use Sex and Gender Information Value Date Recorded Sex Assigned at Not on file Legal Sex Male 6:48 PM EST Gender Identity Not on file Sexual Orientation Not on file Last Filed Vital Signs Vital Sign Reading Time Taken Comments Blood Pressure 111/57 11/24/2017 4:37 AM EDT Pulse 76 11/24/2017 4:37 AM EDT 76 Temperature 36.6 C (97.8 F) 11/24/2017 4:37 AM EDT Respiratory Rate 18 11/24/2017 4:37 AM EDT Oxygen Saturation 100% 11/24/2017 4:37 AM EDT Inhaled Oxygen Concentration 100% 11/24/2017 4 :37 AM EDT Weight 104.3 kg (230 lb) 11/24/2017 1:15 AM EDT Height 172.7 cm (5' 8 ) 11/24/2017 1:15 AM EDT Body Mass Index 34.97 11/24/2017 1:15 AM EDT Plan of Treatment Not on file Insurance [employer] Advance Directives For more information, please contact: [phone] * Full Code (Latest Code Status on File) Date Activated Date Inactivated Comments 11/24/2017 3:29 AM 11/24/2017 3:00 PM * Full Code Date Activated Date Inactivated Comments 11/23/2017 4:56 AM 11/23/2017 7:02 AM Care Teams Grocery Bagger Relationship Specialty Start Date End Date Pcp, No No Address PCP - General Pediatrics 11/23/17
[2024-10-10 18:59] LABS: Basophils # 0.1 K/mm3 (0-0.2); Basophils % 0.6 % (0.1-2.0); Eosinophils # 0.1 Kmm3 (0.0-0.4); Eosinophils % 0.4 % (0.1-12.0); Hematocrit 41.2 % (42.0-52.0); Hemoglobin 14.4 g/dL (14.1-18.0); Immature Granulocytes # 0.07 10^3uL; Immature Granulocytes % 0.5 %; Lymphocytes # 3.2 K/mm3 (0.7-4.5); Lymphocytes % 21.6 % (10-50); Mean Corpuscular Hemoglobin 29.3 pg (27.0-31.2); Mean Corpuscular Volume 83.9 fl (80-94); Mean Platelet Volume 11.7 fl (7.4-10.4); Monocytes # 1.4 K/mm3 (0.1-1.0); Monocytes % 9.6 % (1.7-9.3); Neutrophils # 10.1 K/mm3 (1.8-7.8); Neutrophils % 67.3 % (37.0-80.0); Nucleated Red Blood Cells # 0 10^3/uL; Nucleated Red Blood Cells % 0 %; Platelet Count 214 K/mm3 (142-424); Red Blood Count 4.91 M/mm3 (4.60-6.20); Red Cell Distribution Width 11.9 % (11.5-17.5); Red Cell Distribution Width-SD 36.1 fL
[2024-10-10 19:04] LABS: VBG Base Excess -3.4 mmol/L (-2.4-2.3); VBG HCO3 21.7 mmol/L (23-30); VBG Oxygen Saturation 90.5 % (50-70); VBG PCO2 37.3 mmol/L (35-51); VBG PH 7.38 mmol/L (7.31-7.41); VBG PO2 57.3 mmol/L (28-40); VBG Total CO2 22.9 mmol/L (23-27)
[2024-10-10 19:05] LABS: Lactate Venous 2.1 mmol/L (0.4-2.0)
--- NOTE | 2024-10-10 19:05 | PC.NURSE ---
Joy Pham (mother) [phone]
[2024-10-10 19:06] LABS: INR 1.11 (0.9-1.1); Prothrombin Time 12.2 seconds (10.1-12.5)
--- NOTE | 2024-10-10 19:12 | PC.NURSE ---
pt up and walking around room, steady gait. Anxious appearing. Cup of ice water given. Pt requesting insulin due to his high glucose, accucheck at the bedside to check patient's blood glucose upon request.
--- NOTE | 2024-10-10 19:14 | PC.NURSE ---
Blood Sugar 391, provider aware and food given upon request.
[2024-10-10 19:19] LABS: Alanine Aminotransferase 41 U/L (12-78); Albumin Level 4.5 g/dl (3.5-5.0); Albumin/Globulin Ratio 1.4 (1.1-1.8); Alkaline Phosphatase 80 U/L (38-126); Anion Gap 15.5 mEq/L (5-15); Aspartate Amino Transferase 59 U/L (17-59); Bilirubin,Total 1.3 mg/dl (0.2-1.3); Blood Urea Nitrogen 47 mg/dl (9-20); Calcium 10.9 mg/dl (8.4-10.2); Carbon Dioxide 27 mmol/L (22.0-30.0); Chloride 91 mmol/L (98-107); Creatine Kinase 1183 U/L (55-170); Creatinine Clearance Estimated 31 mL/min (50-200); Estimated Glomerular Filt Rate 16 ml/min (>60); GFR (African American) 19 ML/MIN (>60); Globulin 3.3 g/dL (1.3-3.2); Potassium 3.5 mmoL/L (3.5-5.1); Sodium 130 mmol/L (136-145); Total Protein,Serum 7.8 g/dl (6.3-8.2)
[2024-10-10 19:20] LABS: Acetaminophen < 10 ug/ml (10-30); Salicylate < 1.0 mg/dL (2.0-20.0)
[2024-10-10] MEDS: 0.9 % SODIUM CHLORIDE 1000ML 1,000 ML 999 ML IV ×2 (19:20→22:40)
[2024-10-10] MEDS: humaLOG 100 UNITS/ML 10ML VIAL (SSI) 10 UNIT SUBCUT (19:20)
[2024-10-10 19:21] LABS: Ethyl Alcohol < 10 mg/dl (0-10); Glucose 451 mg/dl (74-100)
[2024-10-10 19:30] LABS: Troponin I 0.04 ng/ml (0.00-0.034)
--- NOTE | 2024-10-10 19:35 | PC.NURSE ---
1844- [facility] [employer] LATHE TENDER notified of critical results Crea 4.10 Glucose 451
--- NOTE | 2024-10-10 19:36 | PC.NURSE ---
Pt requesting more food. Sandwhich given upon request.
--- NOTE | 2024-10-10 20:31 | PC.NURSE ---
attempt to call report at this time.
--- NOTE | 2024-10-10 20:35 | PC.NURSE ---
Report given to Alondra RN on the floor.
--- NOTE | 2024-10-10 20:52 | P.HP_ITS ---
History of Present Illness *Admission Date: 10/10/24 *Reason for visit:: Syncope *History of present illness: This is a 48-year-old male with past medical history of diabetes and substance abuse who presents emergency department today after syncopal episodes after being outside. His friend is with him and provides collateral stating that they worked outside today and [place]. Multiple times today the patient had syncopal episodes. EMS was called for the above-mentioned symptoms. Once EMS arrived patient had multiple other syncopal episodes requiring approximately 1 hour for extraction from the was to get him to the ED emergency department. Patient does endorse smoking marijuana today but denies any other substance abuse. Denies any nausea vomiting. Emergency department workup notable for CK of 1183, troponin of 0.04, glucose of 450, lactic acid of 2.1, creatinine of 4, white blood cell count 15. On exam at the time of admission, patient is walking around the room and engaging in conversation with friend. In no distress. Vital signs stable. Denies any complaints. Denies any sore muscles, nausea, vomiting. Given his lab findings consistent with rhabdomyolysis and JHONNY he will be admitted to the hospital service. [facility] Disclaimer: The information contained in this section may have been updated after the patient was seen, as this information can be updated by other users. Social History (Updated 10/10/24 @ 20:21 by Jade Chapman APRN) Smoking Status: Current every day smoker alcohol intake: current current occupational status: unemployed Travel in the last 8 weeks?: None Have you lived/traveled outside US in past 30 days?: No Contact w/someone who lives/traveled outside US past 30 days?: No Exposure to someone with infectious disease in past 14 days?: No Do you have a fever (greater than 100.4 F or 38 C)?: No Have you tested positive for COVID-19?: No Exposed to someone with COVID-19 in past 14 days?: No Do you have a sore throat?: No Do you have a cough?: No Do you have any weakness?: No Do you have any diarrhea?: No Are you experiencing any unusual bleeding?: No Do you have any muscle aches/pain?: No Do you have any abdominal pain?: No Are you experiencing loss of taste or smell?: No Review of Systems Review of Systems Review of systems:: pertinent systems reviewed and negative unless documented below Review of systems (narrative): Negative except for HPI Meds Home Medications and Allergies New Prescriptions to Start Prescriptions: Allergies Allergy/AdvReac Type Severity Reaction Status Date / Time No Known Allergies Allergy Verified 10/10/24 19:01 Exam Data for Last 24 hours Vital signs and Labs for Last 24 Hours: Temp Pulse Resp BP Pulse Ox O2 Del Method 98.5 F 78 16 140/80 97 Room Air 10/10/24 20:39 10/10/24 20:39 10/10/24 20:39 10/10/24 20:39 10/10/24 19:29 10/10/24 20:39 Laboratory Results - last 24 hr 10/10/24 18:44: WBC 15.0 H, RBC 4.91, Hgb 14.4, Hct 41.2 L, MCV 83.9, MCH 29.3, MCHC 35.0, RDW 11.9, Plt Count 214, MPV 11.7 H, Neut % (Auto) 67.3, Lymph % (Auto) 21.6, [place] % (Auto) 9.6 H, Eos % (Auto) 0.4, Baso % (Auto) 0.6, Neut # (Auto) 10.1 H, Lymph # (Auto) 3.2, [place] # (Auto) 1.4 H, Eos # (Auto) 0.1, Baso # (Auto) 0.1, PT 12.2, INR 1.11 H, Sodium 130 L, Potassium 3.5, Chloride 91 L, Carbon Dioxide 27, Anion Gap 15.5 H, BUN 47 H, Creatinine 4.10 H, Estimated Creat Clear 31, Estimated GFR 16 L*, Est GFR ( Amer) 19 L*, Glucose 451 H*, Calcium 10.9 H, Total Bilirubin 1.3, AST 59, ALT 41, Alkaline Phosphatase 80, Total Creatine Kinase 1183 H*, Troponin I 0.04 H, Total Protein 7.8, Albumin 4.5, Globulin 3.3 H, Albumin/Globulin Ratio 1.4, Salicylates < 1.0 L, Acetaminophen < 10 L, Plasma/Serum Alcohol < 10 10/10/24 18:46: VBG pH 7.38, VBG pCO2 37.3, VBG pO2 57.3 H, VBG HCO3 21.7 L, VBG Total CO2 22.9 L, VBG O2 Saturation 90.5 H, VBG Base Excess -3.4 L, VBG Lactic Acid 2.1 H I & O for Last 24 hours: Intake & Output 10/07/24 10/08/24 10/09/24 10/10/24 23:59 23:59 23:59 23:59 Weight 102.058 kg Constitutional Constitutional: no acute distress *Routine HEENT Exam Head: Present normocephalic Eye: Present EOMI and PERRL ENT: Present mucous membranes moist *Routine Neck Exam Neck: Present supple; Absent lymphadenopathy *Routine Respiratory Exam Respiratory: Present CTA bilaterally *Routine Cardiovascular Exam Cardiovascular: Present RRR *Routine Abdominal Exam Abdominal: Present soft and normoactive bowel sounds; Absent tenderness *Routine Rectal Exam Rectal:: deferred *Routine Genitalia Exam Genitalia:: deferred *Routine Extremities Exam Extremities: Absent cyanosis, clubbing or edema *Routine Skin Exam Skin: Present warm; Absent rash *Routine Neurological Exam Neurological: Present alert and oriented X3 Assessment and Plan *Assessment and plan (1) JHONNY (acute kidney injury): Status: Acute Category: Medical Code(s): N17.9 - Acute kidney failure, unspecified (2) Rhabdomyolysis: Status: Acute Qualifiers: Rhabdomyolysis type: non-traumatic Qualified Code(s): M62.82 - Rhabdomyolysis Category: Medical Code(s): M62.82 - Rhabdomyolysis (3) Type 2 diabetes mellitus with hyperglycemia: Status: Acute Qualifiers: Diabetes mellitus long wall mining machine tender insulin use: with half-way use Qualified Code(s): E11.65 - Type 2 diabetes mellitus with hyperglycemia; Z79.4 - marine oil terminal superintendent (current) use of insulin Category: Medical Code(s): E11.65 - Type 2 diabetes mellitus with hyperglycemia (4) Lactic acidosis: Status: Acute Category: Medical Code(s): E87.20 - Acidosis, unspecified (5) NSTEMI (non-ST elevated myocardial infarction): Status: Acute Category: Medical Code(s): I21.4 - Non-ST elevation (NSTEMI) myocardial infarction (6) Syncope: Status: Acute Qualifiers: Syncope type: vasovagal syncope Qualified Code(s): R55 - Syncope and collapse Category: Medical Code(s): R55 - Syncope and collapse Plan #Rhabdomyolysis #Heat exposure #Syncope Rhabdomyolysis and syncope in the setting of prolonged heat exposure today. CK of 1100. Awaiting urinalysis. CK of 1100. LFTs within normal limits. Continue robust IV fluid administration Repeat CK, LFTs and chemistry in a.m. #T2DM with hyperglycemia Glucose of 451 on admit chemistry. Anion gap of 15. Does not appear in DKA at this time. Likely stress-induced as well as noncompliance Continue sliding scale insulin and IV fluid administration #NSTEMI Nonischemic myocardial injury secondary to heat Drip troponin 0.04. Continue to trend. EKG without ischemia. Denies chest pain
--- NOTE | 2024-10-10 20:55 | PC.NURSE ---
Patient arrived to floor via stretcher from ED at 20:50.
--- NOTE | 2024-10-10 21:18 | PC.NURSE ---
Pt unsure of home medications
[2024-10-10] MEDS: 0.9 % SODIUM CHLORIDE 1000ML 1,000 ML 250 ML IV (21:35)
[2024-10-10 21:56] LABS: POC Glucose,Bedside 483 (70-110)
--- NOTE | 2024-10-10 21:57 | PC.NURSE ---
Addendum entered by Alondra Maciel RN 10/10/24 22:23: VBG ordered at 22:11. Obtained by me at 22:20, sent off for analyzing to Alf TORRES. Original Note: At this time, the patient is appearing very fatigued and drowsy. He is difficult to arouse and maintain wakefulness; patient opens eyes for 10 seconds or less before closing them, entering resting periods. Even and unlabored respirations noted. Vital signs are currently stable (see vital assessment documentation). Upon awakening, the patient was able to verbalize that he is in a hospital when asked and is able to state his own name. Disorientation was expressed otherwise. Patient's ACHS glucose check at 21:46 was 483. Miguel A AGUILAR was notified about the patient's altered level of consciousness and high glucose reading. She stated to give the patient 15 units of Lispro insulin, and she will evaluate the patient at the bedside.
[2024-10-10] MEDS: humaLOG 100 UNITS/ML 10ML VIAL (SSI) SUBCUT (21:59)
[2024-10-10 22:24] LABS: VBG Base Excess -0.3 mmol/L (-2.4-2.3); VBG HCO3 24.1 mmol/L (23-30); VBG Oxygen Saturation 98.7 % (50-70); VBG PCO2 37.6 mmol/L (35-51); VBG PH 7.42 mmol/L (7.31-7.41); VBG PO2 126.1 mmol/L (28-40); VBG Total CO2 25.2 mmol/L (23-27)
[2024-10-10 22:28] LABS: Lactate Venous 3.8 mmol/L (0.4-2.0)
[2024-10-10 22:29] LABS: Troponin I 0.03 ng/ml (0.00-0.034)
[2024-10-10 23:06] LABS: Reflex Lactic Add Lactic Reflex
[2024-10-10 23:27] LABS: Lactic Acid Follow Up (RFLX 1) 3.8 mmol/L (0.7-2.1)
[2024-10-11] VITALS: BP 112/67; PULSE 60; PULSE 64; RESP 20; TEMP 37; O2SAT 94
[2024-10-11 00:55] VITALS: BP 109/63; PULSE 64; RESP 18; O2SAT 96
[2024-10-11 01:08] LABS: Reflex Lactic (2 hrs) Add Lactic Reflex
[2024-10-11] MEDS: 0.9 % SODIUM CHLORIDE 1000ML 1,000 ML 250 ML IV (01:10)
[2024-10-11 01:16] LABS: Anion Gap 9.2 mEq/L (5-15); Blood Urea Nitrogen 48 mg/dl (9-20); Calcium 9.3 mg/dl (8.4-10.2); Carbon Dioxide 28 mmol/L (22.0-30.0); Chloride 95 mmol/L (98-107); Creatinine Clearance Estimated 28 mL/min (50-200); Estimated Glomerular Filt Rate 21 ml/min (>60); GFR (African American) 25 ML/MIN (>60); Glucose 389 mg/dl (74-100); Potassium 3.2 mmoL/L (3.5-5.1); Sodium 129 mmol/L (136-145)
[2024-10-11 01:28] LABS: Troponin I 0.02 ng/ml (0.00-0.034)
[2024-10-11 02:19] LABS: Lactic Acid Follow up (RFLX 2) 1.8 mmol/L (0.7-2.1)
[2024-10-11] MEDS: KCl 10mEq/100ml 100 ML 100 MEQ IV ×2 (03:00→04:15)
[2024-10-11 04:00] VITALS: BP 102/56; PULSE 55; PULSE 58; RESP 18; TEMP 36.3; O2SAT 97; BMI 41.9
[2024-10-11 05:00] VITALS: PULSE 64; RESP 20; O2SAT 95
[2024-10-11 05:25] LABS: POC Glucose,Bedside 266 (70-110)
[2024-10-11] MEDS: humaLOG 100 UNITS/ML 10ML VIAL (SSI) SUBCUT ×2 (05:30→11:39)
[2024-10-11] MEDS: POTASSIUM CHLORIDE 20MEQ TAB 40 MEQ PO ×2 (05:30→09:22)
--- NOTE | 2024-10-11 05:40 | PC.NURSE ---
After 20:50/the patient's arrival to the second floor, admission assessments and home medication reconciliation were unable to be completed accurately due to the patient's altered mental status. GCS 15. After completing admission assessments (performed by charge nurse, Clemente White RN, and orientating nurse, Claudia Hairston RN), the patient started to become very lethargic and disoriented around 21:15. GCS 13. AMPA and fall risk assessment were also unable to be completed accurately at the time. High fall risk precautions were initiated due to the presented mental state and inability to keep eyes open > 10 seconds. Patient was observed to have eyes closed, respirations even and unlabored on room air, and no apparent distress throughout the majority of the night. Patient's brother remained at the bedside. Auscultation of his heart, lungs, and bowels were within normal findings. Maintenance fluid resuscitation, a bolus, and a VBG were additional interventions performed during this shift. Electrolyte replacement protocol was initiated intravenously this shift due to low potassium value of 3.2 (on 10/11/24, 00:50). At approximately 05:00, the patient was awakened by me to assess mental status and the patient's ability to urinate (patient had not urinated throughout the night since his arrival to the second floor). Patient voided 500 mL of urine into his bedside urinal (however, this nurse forgot to save some urine for urine sample; pending UA/UDS). Once the patient was aroused further this morning, the patient was observed to be alert and oriented x4. GCS 15. Patient was able to recall bits and pieces of events during EMS transfer and residing in the ER. Remains unsure of exact medications. Patient is able to ambulate independently at baseline. He stood at the bedside, > 1 minute, to readjust in bed without difficulties this morning. During potassium infusion, the patient started to complain of burning in his left hand (the IV site that was being used) despite dilution with normal saline and refused to continue the electrolyte replacement intravenously. Patient obliged to oral electrolyte replacement instead; Deidra Grady [facility] was paged to switch orders. Patient received two bags of intravenous potassium and 40 mEq of oral potassium total per MAR. Maintenance fluids continue to infuse at 250 mL/hr. Food items were provided to the patient and tolerated very well. ACHS glucose checks performed. At this time, the patient is resting upright in bed, watching TV, without any further complaints. No new needs thus far. Call light within reach.
[2024-10-11 08:00] VITALS: BP 129/84; PULSE 70; PULSE 72; RESP 18; TEMP 36.4; O2SAT 98
[2024-10-11 08:38] LABS: Albumin Level 3.5 g/dl (3.5-5.0); Chloride 93 mmol/L (98-107); Potassium 3.3 mmoL/L (3.5-5.1); Sodium 132 mmol/L (136-145)
[2024-10-11 08:41] LABS: Alanine Aminotransferase 46 U/L (12-78); Albumin/Globulin Ratio 1.3 (1.1-1.8); Alkaline Phosphatase 107 U/L (38-126); Anion Gap 14.3 mEq/L (5-15); Aspartate Amino Transferase 97 U/L (17-59); Bilirubin,Total 0.5 mg/dl (0.2-1.3); Blood Urea Nitrogen 43 mg/dl (9-20); Carbon Dioxide 28 mmol/L (22.0-30.0); Creatinine Clearance Estimated 36 mL/min (50-200); Estimated Glomerular Filt Rate 29 ml/min (>60); GFR (African American) 35 ML/MIN (>60); Globulin 2.7 g/dL (1.3-3.2); Total Protein,Serum 6.2 g/dl (6.3-8.2)
[2024-10-11 08:42] LABS: Calcium 8.1 mg/dl (8.4-10.2); Magnesium 1.5 mg/dl (1.6-2.3)
[2024-10-11 08:43] LABS: Basophils # 0.1 K/mm3 (0-0.2); Basophils % 0.4 % (0.1-2.0); Eosinophils # 0.2 Kmm3 (0.0-0.4); Eosinophils % 2.1 % (0.1-12.0); Hematocrit 36.3 % (42.0-52.0); Immature Granulocytes # 0.04 10^3uL; Immature Granulocytes % 0.3 %; Lymphocytes # 2.9 K/mm3 (0.7-4.5); Lymphocytes % 25.3 % (10-50); Mean Corpuscular HGB Conc 33.3 g/dL (31.8-35.4); Mean Corpuscular Hemoglobin 28.6 pg (27.0-31.2); Mean Corpuscular Volume 85.8 fl (80-94); Mean Platelet Volume 11.3 fl (7.4-10.4); Monocytes # 1.1 K/mm3 (0.1-1.0); Monocytes % 9.6 % (1.7-9.3); Neutrophils # 7.2 K/mm3 (1.8-7.8); Neutrophils % 62.3 % (37.0-80.0); Nucleated Red Blood Cells # 0 10^3/uL; Nucleated Red Blood Cells % 0 %; Platelet Count 156 K/mm3 (142-424); Red Blood Count 4.23 M/mm3 (4.60-6.20); Red Cell Distribution Width 12.2 % (11.5-17.5); Red Cell Distribution Width-SD 38.5 fL; White Blood Count 11.5 K/mm3 (4.8-10.8)
[2024-10-11 08:52] LABS: Hemoglobin 12.2 g/dL (14.1-18.0)
[2024-10-11 08:54] LABS: Glucose 412 mg/dl (74-100)
[2024-10-11 08:59] LABS: Creatine Kinase 3797 U/L (55-170)
[2024-10-11 09:19] LABS: Microscopic, Urine URINE MICROSCOPIC (MICROSCOPIC)
[2024-10-11 09:24] LABS: Appearance,Urine CLEAR (Clear); Bilirubin,Urine Negative (Negative); Blood, Urine 1+ (Negative); Color,Urine YELLOW (Yellow); Glucose,Urine (UA) 3+ (Negative); Ketones,Urine Negative (Negative); Leukocyte Esterase,Urine Negative (Negative); Nitrate,Urine Negative (Negative); PH,Urine 5.5 (5.0-8.5); Protein,Urine TRACE (Negative); Specific Gravity, Urine 1.025 (1.005-1.030); Urobilinogen,Urine 0.2 EU/dl (0.2)
[2024-10-11] MEDS: MAGNESIUM SULFATE IN WATER 2 GM/50 ML PIGGYBACK IV ×2 (09:30→10:30)
[2024-10-11 09:37] LABS: Barbiturates Screen,Urine Negative ng/ml (<200)
[2024-10-11 09:38] LABS: Benzodiazepines Screen,Urine Negative ng/ml (<200)
[2024-10-11 09:39] LABS: Amphetamine/Metha Screen,Urine Positive ng/ml (<1000); Methadone Screen,Urine Negative ng/ml (<300)
[2024-10-11 09:40] LABS: Cannabinoid Screen,Urine Positive ng/ml (<50); Cocaine Screen,Urine Negative ng/ml (<300)
[2024-10-11 09:41] LABS: Opiate Screen,Urine Negative ng/ml (<300)
[2024-10-11 09:42] LABS: Phencyclidine Screen,Urine Negative ng/ml (<25)
[2024-10-11 09:43] LABS: Bacteria,Urine Trace /lpf; Squamous Epithelial Cell,Urine Occasional #/hpf (0-5); WBC,Urine Occasional #/hpf (0-3)
--- NOTE | 2024-10-11 10:18 | PC.NURSE ---
PT TAKES INSULIN AT HOME BUT IN UNSURE WHAT TYPE
[2024-10-11 11:30] LABS: Glucose,Random 479 mg/dL (74-100)
[2024-10-11] MEDS: INSULIN GLARGINE 100 UNITS/ML 10ML VIAL 20 UNIT SUBCUT (11:37)
[2024-10-11 11:51] LABS: POC Glucose,Bedside 508 (70-110)
[2024-10-11 11:52] LABS: Hemoglobin A1C 12.1 % (4.0-6.0)
[2024-10-11 12:00] VITALS: BP 124/97; PULSE 70; PULSE 73; RESP 18; TEMP 36.4; O2SAT 97
--- NOTE | 2024-10-11 13:44 | P.DS_ITS ---
<Statement entered by Duong Harrington MD - 10/13/24 22:24> Patient left AGAINST MEDICAL ADVICE though he was advised to stay with uptrending CK. General Admission date:: 10/10/24 Discharge date: 10/11/24 HPI HPI HPI: This is a 48-year-old male with past medical history of diabetes and substance abuse who presents emergency department today after syncopal episodes after being outside. His friend is with him and provides collateral stating that they worked outside today and also were down in a [place]. Multiple times today the patient had syncopal episodes. EMS was called for the above-mentioned symptoms. Once EMS arrived patient had multiple other syncopal episodes requiring approximately 1 hour for extraction from the was to get him to the ED emergency department. Patient does endorse smoking marijuana today but denies any other substance abuse. Denies any nausea vomiting. Emergency department workup notable for CK of 1183, troponin of 0.04, glucose of 450, lactic acid of 2.1, creatinine of 4, white blood cell count 15. On exam at the time of admission, patient is walking around the room and engaging in conversation with friend. In no distress. Vital signs stable. Denies any complaints. Denies any sore muscles, nausea, vomiting. Given his lab findings consistent with rhabdomyolysis and JHONNY he will be admitted to the hospital service. Hospital Course Hospital Course Hospital Course: #Rhabdomyolysis #Heat exposure #Syncope -Rhabdomyolysis and syncope in the setting of prolonged heat exposure today. -CK of 1100, trending upward to 3797. LFTs within normal limits. -Continue robust IV fluid administration, NS 250 mL/hr. #Acute kidney injury -Kidney function on admission BUN 47, creatinine 4.1. Aggressively fluid resuscitated, repeat kidney function is BUN 43, creatinine 2.4. #T2DM with hyperglycemia -Glucose of 451 on admit chemistry. Anion gap of 15. Does not appear in DKA at this time. Likely stress-induced as well as noncompliance -High intensity sliding scale ordered ACHS, patient's sugars trending in the 500s. Lantus 20 units long-acting given subcu x 1, in addition to ACHS sliding scale. -Spoke with the pharmacist at [facility] in [place], he states that patient has not picked up his prescriptions since April. -Discussed in depth with patient the need to be compliant with insulin. Discussed risk accompanied with hyperglycemia and noncompliance. -A1c 12.1. #Opioid use disorder -Patient UDS came back positive for amphetamines and marijuana. Colleen with peers support came to see the patient. Recommendation to send in Narcan. Patient does admit to smoking meth and using marijuana daily. Occasional alcohol use. States that he does not plan to stop at this time. Discussed safety measures with patient. #Hypomagnesia #Hypokalemia -Initial potassium is 3.5, trending down to 3.2. Replaced per protocol. -Magnesium of 1.5, replaced per protocol. #NSTEMI, type II -Nonischemic myocardial injury secondary to heat. -Initial troponin 0.04, trending down to 0.03, 0.02. EKG without ischemia. -Denies chest pain, shortness of breath. #Left AGAINST MEDICAL ADVICE -Patient became agitated, stating that he must leave. Discussed with patient inherent risks to leaving. Discussed Narcan will be at the pharmacy. Patient refuses to sign AMA paperwork. Exam Data for Last 24 hours Vital signs and Labs for Last 24 Hours: Temp Pulse Resp BP Pulse Ox O2 Del Method 97.6 F 70 18 129/84 98 Room Air 10/11/24 08:00 10/11/24 12:00 10/11/24 08:00 10/11/24 08:00 10/11/24 08:00 10/11/24 11:00 Laboratory Results - last 24 hr 10/10/24 09:13: Urine Color Yellow, Urine Appearance Clear, Urine pH 5.5, Ur Specific [place] 1.025, Urine Protein Trace, Urine Glucose (UA) 3+, Urine Ketones Negative, Urine Blood 1+ A, Urine Nitrate Negative, Urine Bilirubin Negative, Urine Urobilinogen 0.2, Ur Leukocyte Esterase Negative, Urine RBC 3-5, Urine WBC Occasional, Ur Squamous Epith Cells Occasional, Urine Bacteria Trace, Urine Opiates Screen Negative, Urine Methadone Screen Negative, Ur Barbituates Screen Negative, Ur Phencyclidine Scrn Negative, Ur Amphetamines Screen Positive H, U Benzodiazepines Scrn Negative, Urine Cocaine Screen Negative, U Marijuana (THC) Screen Positive H 10/10/24 18:44: WBC 15.0 H, RBC 4.91, Hgb 14.4, Hct 41.2 L, MCV 83.9, MCH 29.3, MCHC 35.0, RDW 11.9, Plt Count 214, MPV 11.7 H, Neut % (Auto) 67.3, Lymph % (Auto) 21.6, [facility] % (Auto) 9.6 H, Eos % (Auto) 0.4, Baso % (Auto) 0.6, Neut # (Auto) 10.1 H, Lymph # (Auto) 3.2, [facility] # (Auto) 1.4 H, Eos # (Auto) 0.1, Baso # (Auto) 0.1, PT 12.2, INR 1.11 H, Sodium 130 L, Potassium 3.5, Chloride 91 L, Carbon Dioxide 27, Anion Gap 15.5 H, BUN 47 H, Creatinine 4.10 H, Estimated Creat Clear 31, Estimated GFR 16 L*, Est GFR ( Amer) 19 L*, Glucose 451 H*, Calcium 10.9 H, Total Bilirubin 1.3, AST 59, ALT 41, Alkaline Phosphatase 80, Total Creatine Kinase 1183 H*, Troponin I 0.04 H, Total Protein 7.8, Albumin 4.5, Globulin 3.3 H, Albumin/Globulin Ratio 1.4, Salicylates < 1.0 L, Acetaminophen < 10 L, Plasma/Serum Alcohol < 10 10/10/24 18:46: VBG pH 7.38, VBG pCO2 37.3, VBG pO2 57.3 H, VBG HCO3 21.7 L, VBG Total CO2 22.9 L, VBG O2 Saturation 90.5 H, VBG Base Excess -3.4 L, VBG Lactic Acid 2.1 H 10/10/24 21:46: POC Glucose 483 H* 10/10/24 21:56: Troponin I 0.03 10/10/24 22:11: VBG pH 7.42 H, VBG pCO2 37.6, VBG pO2 126.1 H, VBG HCO3 24.1, VBG Total CO2 25.2, VBG O2 Saturation 98.7 H, VBG Base Excess -0.3, VBG Lactic Acid 3.8 H 10/10/24 22:56: Lactate 3.8 H 10/11/24 00:50: Sodium 129 L, Potassium 3.2 L, Chloride 95 L, Carbon Dioxide 28, Anion Gap 9.2, BUN 48 H, Creatinine 3.20 H D, Estimated Creat Clear 28, Estimated GFR 21 L, Est GFR ( Amer) 25 L D, Glucose 389 H, Calcium 9.3, Troponin I 0.02 10/11/24 01:58: Lactate 1.8 10/11/24 05:14: POC Glucose 266 H 10/11/24 08:15: WBC 11.5 H, RBC 4.23 L, Hgb 12.2 L D, Hct 36.3 L, MCV 85.8, MCH 28.6, MCHC 33.3, RDW 12.2, Plt Count 156 D, MPV 11.3 H, Neut % (Auto) 62.3, Lymph % (Auto) 25.3, [facility] % (Auto) 9.6 H, Eos % (Auto) 2.1, Baso % (Auto) 0.4, Neut # (Auto) 7.2, Lymph # (Auto) 2.9, [facility] # (Auto) 1.1 H, Eos # (Auto) 0.2, Baso # (Auto) 0.1, Sodium 132 L, Potassium 3.3 L, Chloride 93 L, Carbon Dioxide 28, Anion Gap 14.3, BUN 43 H, Creatinine 2.40 H D, Estimated Creat Clear 36, Estimated GFR 29 L, Est GFR ( Amer) 35 L D, Glucose 412 H*, Hemoglobin A1c 12.1 H, Calcium 8.1 L, Magnesium 1.5 L, Total Bilirubin 0.5, AST 97 H D, ALT 46, Alkaline Phosphatase 107, Total Creatine Kinase 3797 H* D, Total Protein 6.2 L, Albumin 3.5 D, Globulin 2.7, Albumin/Globulin Ratio 1.3 10/11/24 10:50: POC Glucose 508 H* 10/11/24 11:04: Random Glucose 479 H* I & O for Last 24 hours: Intake & Output 10/08/24 10/09/24 10/10/24 10/11/24 23:59 23:59 23:59 23:59 Intake Total 2623 / 2623 Output Total 500 / 500 Balance 2122 / 2122 Weight 128.548 kg 128.548 kg Results Data Completed and Pending Labs on day of discharge: Labs from last 24 hours 10/11/24 10/11/24 10/11/24 11:04 10:50 08:15 WBC 11.5 H RBC 4.23 L Hgb 12.2 L D Hct 36.3 L MCV 85.8 MCH 28.6 MCHC 33.3 RDW 12.2 Plt Count 156 D MPV 11.3 H Neut % (Auto) 62.3 Lymph % (Auto) 25.3 [facility] % (Auto) 9.6 H Eos % (Auto) 2.1 Baso % (Auto) 0.4 Neut # (Auto) 7.2 Lymph # (Auto) 2.9 [facility] # (Auto) 1.1 H Eos # (Auto) 0.2 Baso # (Auto) 0.1 PT INR VBG pH VBG pCO2 VBG pO2 VBG HCO3 VBG Total CO2 VBG O2 Saturation VBG Base Excess VBG Lactic Acid Sodium 132 L Potassium 3.3 L Chloride 93 L Carbon Dioxide 28 Anion Gap 14.3 BUN 43 H Creatinine 2.40 H D Estimated Creat Clear 36 Estimated GFR 29 L Est GFR ( Amer) 35 L D Glucose 412 H* POC Glucose 508 H* Random Glucose 479 H* Hemoglobin A1c 12.1 H Lactate Calcium 8.1 L Magnesium 1.5 L Total Bilirubin 0.5 AST 97 H D ALT 46 Alkaline Phosphatase 107 Total Creatine Kinase 3797 H* D Troponin I Total Protein 6.2 L Albumin 3.5 D Globulin 2.7 Albumin/Globulin Ratio 1.3 Urine Color Urine Appearance Urine pH Ur Specific [place] Urine Protein Urine Glucose (UA) Urine Ketones Urine Blood Urine Nitrate Urine Bilirubin Urine Urobilinogen Ur Leukocyte Esterase Urine RBC Urine WBC Ur Squamous Epith Cells Urine Bacteria Salicylates Urine Opiates Screen Urine Methadone Screen Acetaminophen Ur Barbituates Screen Ur Phencyclidine Scrn Ur Amphetamines Screen U Benzodiazepines Scrn Urine Cocaine Screen U Marijuana (THC) Screen Plasma/Serum Alcohol 10/11/24 10/11/24 10/11/24 05:14 01:58 00:50 WBC RBC Hgb Hct MCV MCH MCHC RDW Plt Count MPV Neut % (Auto) Lymph % (Auto) [facility] % (Auto) Eos % (Auto) Baso % (Auto) Neut # (Auto) Lymph # (Auto) [facility] # (Auto) Eos # (Auto) Baso # (Auto) PT INR VBG pH VBG pCO2 VBG pO2 VBG HCO3 VBG Total CO2 VBG O2 Saturation VBG Base Excess VBG Lactic Acid Sodium 129 L Potassium 3.2 L Chloride 95 L Carbon Dioxide 28 Anion Gap 9.2 BUN 48 H Creatinine 3.20 H D Estimated Creat Clear 28 Estimated GFR 21 L Est GFR ( Amer) 25 L D Glucose 389 H POC Glucose 266 H Random Glucose Hemoglobin A1c Lactate 1.8 Calcium 9.3 Magnesium Total Bilirubin AST ALT Alkaline Phosphatase Total Creatine Kinase Troponin I 0.02 Total Protein Albumin Globulin Albumin/Globulin Ratio Urine Color Urine Appearance Urine pH Ur Specific [place] Urine Protein Urine Glucose (UA) Urine Ketones Urine Blood Urine Nitrate Urine Bilirubin Urine Urobilinogen Ur Leukocyte Esterase Urine RBC Urine WBC Ur Squamous Epith Cells Urine Bacteria Salicylates Urine Opiates Screen Urine Methadone Screen Acetaminophen Ur Barbituates Screen Ur Phencyclidine Scrn Ur Amphetamines Screen U Benzodiazepines Scrn Urine Cocaine Screen U Marijuana (THC) Screen Plasma/Serum Alcohol 10/10/24 10/10/24 10/10/24 22:56 22:11 21:56 WBC RBC Hgb Hct MCV MCH MCHC RDW Plt Count MPV Neut % (Auto) Lymph % (Auto) [facility] % (Auto) Eos % (Auto) Baso % (Auto) Neut # (Auto) Lymph # (Auto) [facility] # (Auto) Eos # (Auto) Baso # (Auto) PT INR VBG pH 7.42 H VBG pCO2 37.6 VBG pO2 126.1 H VBG HCO3 24.1 VBG Total CO2 25.2 VBG O2 Saturation 98.7 H VBG Base Excess -0.3 VBG Lactic Acid 3.8 H Sodium Potassium Chloride Carbon Dioxide Anion Gap BUN Creatinine Estimated Creat Clear Estimated GFR Est GFR ( Amer) Glucose POC Glucose Random Glucose Hemoglobin A1c Lactate 3.8 H Calcium Magnesium Total Bilirubin AST ALT Alkaline Phosphatase Total Creatine Kinase Troponin I 0.03 Total Protein Albumin Globulin Albumin/Globulin Ratio Urine Color Urine Appearance Urine pH Ur Specific [place] Urine Protein Urine Glucose (UA) Urine Ketones Urine Blood Urine Nitrate Urine Bilirubin Urine Urobilinogen Ur Leukocyte Esterase Urine RBC Urine WBC Ur Squamous Epith Cells Urine Bacteria Salicylates Urine Opiates Screen Urine Methadone Screen Acetaminophen Ur Barbituates Screen Ur Phencyclidine Scrn Ur Amphetamines Screen U Benzodiazepines Scrn Urine Cocaine Screen U Marijuana (THC) Screen Plasma/Serum Alcohol 10/10/24 10/10/24 10/10/24 21:46 18:46 18:44 WBC 15.0 H RBC 4.91 Hgb 14.4 Hct 41.2 L MCV 83.9 MCH 29.3 MCHC 35.0 RDW 11.9 Plt Count 214 MPV 11.7 H Neut % (Auto) 67.3 Lymph % (Auto) 21.6 [facility] % (Auto) 9.6 H Eos % (Auto) 0.4 Baso % (Auto) 0.6 Neut # (Auto) 10.1 H Lymph # (Auto) 3.2 [facility] # (Auto) 1.4 H Eos # (Auto) 0.1 Baso # (Auto) 0.1 PT 12.2 INR 1.11 H VBG pH 7.38 VBG pCO2 37.3 VBG pO2 57.3 H VBG HCO3 21.7 L VBG Total CO2 22.9 L VBG O2 Saturation 90.5 H VBG Base Excess -3.4 L VBG Lactic Acid 2.1 H Sodium 130 L Potassium 3.5 Chloride 91 L Carbon Dioxide 27 Anion Gap 15.5 H BUN 47 H Creatinine 4.10 H Estimated Creat Clear 31 Estimated GFR 16 L* Est GFR ( Amer) 19 L* Glucose 451 H* POC Glucose 483 H* Random Glucose Hemoglobin A1c Lactate Calcium 10.9 H Magnesium Total Bilirubin 1.3 AST 59 ALT 41 Alkaline Phosphatase 80 Total Creatine Kinase 1183 H* Troponin I 0.04 H Total Protein 7.8 Albumin 4.5 Globulin 3.3 H Albumin/Globulin Ratio 1.4 Urine Color Urine Appearance Urine pH Ur Specific [place] Urine Protein Urine Glucose (UA) Urine Ketones Urine Blood Urine Nitrate Urine Bilirubin Urine Urobilinogen Ur Leukocyte Esterase Urine RBC Urine WBC Ur Squamous Epith Cells Urine Bacteria Salicylates < 1.0 L Urine Opiates Screen Urine Methadone Screen Acetaminophen < 10 L Ur Barbituates Screen Ur Phencyclidine Scrn Ur Amphetamines Screen U Benzodiazepines Scrn Urine Cocaine Screen U Marijuana (THC) Screen Plasma/Serum Alcohol < 10 10/10/24 09:13 WBC RBC Hgb Hct MCV MCH MCHC RDW Plt Count MPV Neut % (Auto) Lymph % (Auto) [facility] % (Auto) Eos % (Auto) Baso % (Auto) Neut # (Auto) Lymph # (Auto) [facility] # (Auto) Eos # (Auto) Baso # (Auto) PT INR VBG pH VBG pCO2 VBG pO2 VBG HCO3 VBG Total CO2 VBG O2 Saturation VBG Base Excess VBG Lactic Acid Sodium Potassium Chloride Carbon Dioxide Anion Gap BUN Creatinine Estimated Creat Clear Estimated GFR Est GFR ( Amer) Glucose POC Glucose Random Glucose Hemoglobin A1c Lactate Calcium Magnesium Total Bilirubin AST ALT Alkaline Phosphatase Total Creatine Kinase Troponin I Total Protein Albumin Globulin Albumin/Globulin Ratio Urine Color Yellow Urine Appearance Clear Urine pH 5.5 Ur Specific [place] 1.025 Urine Protein Trace Urine Glucose (UA) 3+ Urine Ketones Negative Urine Blood 1+ A Urine Nitrate Negative Urine Bilirubin Negative Urine Urobilinogen 0.2 Ur Leukocyte Esterase Negative Urine RBC 3-5 Urine WBC Occasional Ur Squamous Epith Cells Occasional Urine Bacteria Trace Salicylates Urine Opiates Screen Negative Urine Methadone Screen Negative Acetaminophen Ur Barbituates Screen Negative Ur Phencyclidine Scrn Negative Ur Amphetamines Screen Positive H U Benzodiazepines Scrn Negative Urine Cocaine Screen Negative U Marijuana (THC) Screen Positive H Plasma/Serum Alcohol DS: Diagnosis Discharge Diagnosis (1) JHONNY (acute kidney injury): Status: Acute Code(s): N17.9 - Acute kidney failure, unspecified (2) Rhabdomyolysis: Status: Acute Code(s): M62.82 - Rhabdomyolysis Qualifiers: Rhabdomyolysis type: non-traumatic Qualified Code(s): M62.82 - Rhabdomyolysis (3) Type 2 diabetes mellitus with hyperglycemia: Status: Acute Code(s): E11.65 - Type 2 diabetes mellitus with hyperglycemia Qualifiers: Diabetes mellitus [facility] insulin use: with [facility] use Qualified Code(s): E11.65 - Type 2 diabetes mellitus with hyperglycemia; Z79.4 - alf (current) use of insulin (4) Lactic acidosis: Status: Acute Code(s): E87.20 - Acidosis, unspecified (5) NSTEMI (non-ST elevated myocardial infarction): Status: Acute Code(s): I21.4 - Non-ST elevation (NSTEMI) myocardial infarction (6) Syncope: Status: Acute Code(s): R55 - Syncope and collapse (7) Left against medical advice: Status: Acute Code(s): Z53.29 - Procedure and treatment not carried out because of patient's decision for other reasons (8) Hypomagnesemia: Status: Acute Code(s): E83.42 - Hypomagnesemia (9) Hypokalemia: Status: Acute Code(s): E87.6 - Hypokalemia Meds Home Medications and Allergies Home Medications ?Medication ?Instructions ?Recorded ?Confirmed ?Type amlodipine 10 mg tablet 10 mg PO DAILY 10/11/2409/20 History gabapentin 600 mg tablet 600 mg PO TID 10/11/2410/11 History insulin syringe-needle U-100 1 mL 10/11/24 10/11/24 H istory 30 gauge x 7/16 naloxone 4 mg/actuation nasal 4 mg intranasal Q2M PRN opioid 10/11/24 Rx spray (Narcan) overdose #2 ea New Prescriptions to Start Prescriptions: naloxone [Narcan] Digna Randolph Allergies Allergy/AdvReac Type Severity Reaction Status Date / Time No Known Allergies Allergy Verified 10/10/24 19:01 Discharge Plan Disposition Patient Disposition: Left Against Medical Advice Condition: Fair Patient Discharge Instructions Print Language: Marshallese Providers Admit Provider: Duong Harrington Attending Provider: Duong Harrington
--- NOTE | 2024-10-11 13:44 | PC.NURSE ---
Addendum entered by Kaur Mcdermott, RN 10/11/24 14:01: Debo WILLS Original Note: Late Entry: Around 1300, pt became anxious and wanted to go outside. Pt was educated by primary nurse and this charge nurse that he could walk around floor and that it was against hospital policy to leave floor to go outside to smoke. Pt stated that he was going to leave any way. Debo Randolph was notified and Educated pt on the importance of staying for Tx in the hospital. Pt was presented paperwork to sign leaving AMA and refused to sign. It was witnessed by this nurse, Duong Angulo and Practioner, Debo Randolph.
--- NOTE | 2024-10-11 15:45 | PEERSUPPORT ---
Peer Support Note Patient Information Patient Information: DOS: 10/11/2024 ? Drug(s) of Choice: Meth (smoke, snort), THC ? Last Use: 10/10/2024 ? Current MAT/MOUD: [facility], suboxone 8 mg/2mg, 2x per day ? Previous Treatment: ? Longest Length of Sobriety: 2.5 years ? Support System: [place] friend at bedside Girlfriend ? Legal Issues: None mentioned ? Potential Barriers: -Lack of connection to recovery community -Minimizing effects of stimulants to overall health -Health issues- diabetic ? Harm reduction: -Connection to [facility] peer support -Education on [facility] -Treatment referrals and resources -Encouragement through lived experience ? Motivation for Change: Pt stated he knows what he needs to do and has no need for resources at this time, he is in a relationship that challenges him to put action and efforts into his recovery. He stated he feels he has received an answer from God that he needs to give up meth in order to have a better life. He in actively enrolled at [facility] for MAT, that does help him. ? Ps provided active listening. ? Pt following lunch became restless wanting a cigarette, or to go outside for some fresh air. ? Ps alerted JohnK. [employer]. ? Recommendations: Prescribe Narcan for high risk to overdose, due to stimulants being laced with other chemical/substance. ? Plan of Action: Pt left AMA ? Ps will attempt to follow up with pt
== END 2024-10-11 13:29 | disposition left against medical advice (07) ==
LOC: ER 19:55 → 2ND 20:23
PROVIDERS: Nurse Practitioner; Nurse Practitioner Acute Care; Admitting Provider Student in an Organized Health Care Education/Training Program; Emergency Provider Emergency Medicine; Visit Provider Student in an Organized Health Care Education/Training Program
DX: N17.9 Acute kidney failure, unspecified (principal); T67.1XXA Heat syncope, initial encounter; I21.4 Non-ST elevation (NSTEMI) myocardial infarction; M62.82 Rhabdomyolysis; E11.65 Type 2 diabetes mellitus with hyperglycemia; Z79.4 Long term (current) use of insulin; E87.20 Acidosis, unspecified; E83.42 Hypomagnesemia; E87.6 Hypokalemia; Z53.29 Procedure and treatment not carried out because of patient's decision for other reasons; F12.10 Cannabis abuse, uncomplicated; F17.210 Nicotine dependence, cigarettes, uncomplicated; X30.XXXA Exposure to excessive natural heat, initial encounter; Y92.828 Other wilderness area as the place of occurrence of the external cause; Z79.891 Long term (current) use of opiate analgesic; Z91.199 Patient's noncompliance with other medical treatment and regimen due to unspecified reason
CPT/HCPCS: 96361 ×2; 96365; 96367; 36415; 71045; 80048; 80053; 80307; 80320; 80329; 81001; 82550; 82803; 82947; 82962; 83036; 83605; 83735; 84484; 85025; 85610; 93005; G0378; J3475; J3480; J7030